=== PATIENT | female | born 1975 | race Caucasian/White ===

== ENCOUNTER 2016-06-15 17:24 | Inpatient (IN) | payer SELFPAY ==
[~2016-06-15] VITALS: Ht 157.5 cm; Wt 77.7 kg
[~2016-06-15 17:24] MED LIST: ULT50 PO
[2016-06-15] MEDS ORDERED: morphine 4 MG/ML VIAL IV STA ×2 (19:32→21:02)
[2016-06-15] MEDS ORDERED: SOD CHLORIDE 0.9% 1,000 ML IV STA (19:32)
[2016-06-15] MEDS ORDERED: ONDANSETRON 4 MG INJ IV STA (19:32)
--- NOTE | 2016-06-15 19:47 | ERD ---
ER Documentation Chief Complaint Date/Time DATE: 06/15/16 TIME: 19:42 Chief Complaint abdominal pain for the past 4 hours no vomiting.vag bleeding abnormal HPI 40-year-old female with a history of appendectomy and ectopic presents the emergency department complaining of constant sharp 10 out of 10 lower abdominal pain, left flank pain, and vaginal bleeding since 4 hours ago. Patient states she was seen by an urgent care earlier today and received Rulo for pain but has experienced no relief. Patient states her last normal menstrual period was on June 01 and lasted 5 days. Patient states she underwent an appendectomy in 2006. She states she has been able to keep down small amounts of food and liquid this morning and reports normal bowel movement this morning. Patient denies any nausea, vomiting, diarrhea, and states she is not experienced this type of pain in the past. Patient has been seen by her primary care physician for her chronic low back pain and takes Aleve as needed. ROS All systems reviewed and are negative except as per history of present illness. Medications Home Meds Active Scripts Cephalexin* (Keflex*) 500 Mg Capsule, 500 MG PO QID for 7 Days, CAP Prov:JACQUELINE CUNHA PA-C 06/15/16 Ibuprofen* (Motrin*) 600 Mg Tab, 600 MG PO Q6, #30 TAB Prov:JACQUELINE CUNHA PA-C 06/15/16 Hydrocodone/Acetaminophen (Rulo 10-325 Tablet) 1 Each Tablet, 1 TAB PO Q6H Y for PAIN, #7 TAB Prov:JACQUELINE CUNHA PA-C 06/15/16 Docusate Sodium* (Colace*) 100 Mg Capsule, 200 MG PO DAILY, #30 CAP Prov:JACQUELINE CUNHA PA-C 06/15/16 Ferrous Sulfate* (Ferrous Sulfate*) 325 Mg Tabec, 325 MG PO BID for 60 Days, TAB Prov:JACQUELINE CUNHA PA-C 06/15/16 Tramadol HCl (Tramadol HCl) 50 Mg Tablet, 50 MG PO Q6 Y for PAIN, #20 TAB Prov:PRIYANKA GILLETTE PA-C 05/20/16 Allergies Allergies: Coded Allergies: No Known Allergy (Unverified , 05/20/16) PMhx/Soc History of Surgery: No Anesthesia Reaction: No Hx Neurological Disorder: No Hx Respiratory Disorders: No Hx Cardiac Disorders: No Hx Psychiatric Problems: No Hx Miscellaneous Medical Probl: No Hx Alcohol Use: No Hx Substance Use: No Hx Tobacco Use: No Physical Exam Vitals Vital Signs Date Time Temp Pulse Resp B/P Pulse Ox O2 Delivery O2 Flow Rate FiO2 06/15/16 17:26 98.3 111 20 140/67 97 Physical Exam Const: Pale, Well-developed, in moderate distress, dehydrated in appearance Head: Atraumatic Eyes: Normal Conjunctiva ENT: Dry mucous membranes, normal External Ears, Nose and Mouth. Neck: Full range of motion..~ No meningismus. Resp: Clear to auscultation bilaterally Cardio: Regular rate and rhythm, no murmurs Abd: Soft, tender along suprapubic region, non distended. Normal bowel sounds. Negative McBurney's point tenderness, negative Kessler sign. Skin: Diffuse Pallor, No petechiae or rashes Back: No midline or flank tenderness Ext: No cyanosis, or edema Neur: Awake and alert Psych: Normal Mood and Affect Result Diagram: 06/15/16195306/15/161953 Results 24 hrs Laboratory Tests Test 06/15/16 19:54 06/15/16 19:56 Alanine Aminotransferase (ALT/SGPT) 26IU/L Albumin 4.0g/dl Albumin/Globulin Ratio 0.93 Alkaline Phosphatase 120IU/L Anion Gap 17 Aspartate Amino Transf (AST/SGOT) 27IU/L Basophils # 0.110^3/ul Basophils % 2.0% Blood Morphology Comment Blood Urea Nitrogen 11mg/dl Calcium Level 8.5mg/dl Carbon Dioxide Level 27mmol/L Chloride Level 103mmol/L Creatinine 0.80mg/dl Direct Bilirubin 0.00mg/dl Eosinophils # 0.110^3/ul Eosinophils % 1.0% Globulin 4.30g/dl Glucose Level 76mg/dl Hematocrit 25.5% Hemoglobin 7.8g/dl Indirect Bilirubin 0.0mg/dl Lipase 224U/L Lymphocytes # 3.210^3/ul Lymphocytes % 44.0% Mean Corpuscular Hemoglobin 19.4pg Mean Corpuscular Hemoglobin Concent 30.4g/dl Mean Corpuscular Volume 63.9fl Mean Platelet Volume 7.9fl Monocytes # 0.410^3/ul Monocytes % 5.0% Neutrophils # 3.510^3/ul Neutrophils % 48.0% Platelet Count 16217^3/UL Platelet Estimate PLT APPEAR ADEQUATE Potassium Level 3.6mmol/L Red Blood Count 3.9910^6/ul Red Cell Distribution Width 20.1% Sodium Level 143mmol/L Total Bilirubin 0.0mg/dl Total Protein 8.3g/dl Troponin I < 0.012ng/ml White Blood Count 7.210^3/ul Urine Bacteria FEW Urine Bilirubin NEGATIVE Urine Clarity SLIGHTLY CLOUDY Urine Color LT. YELLOW Urine Glucose NEGATIVE% Urine Hemoglobin 2+ Urine Ketones NEGATIVE Urine Leukocyte Esterase 2+ Urine Microscopic RBC 10-25/HPF Urine Microscopic WBC 10-25/HPF Urine Nitrite NEGATIVE Urine Specific [place] >=1.030 Urine Squamous Epithelial Cells FEW Urine Total Protein 1+ Urine Urobilinogen 0.2 E.U./dL Urine pH 5.5 Current Medications Medications (Trade) Dose Ordered Sig/Ana Route PRN Reason Start Time Stop Time Status Last Admin Dose Admin Sodium Chloride (NS) 1,000 ml @ 1,000 mls/hr Q1H STAT IV 06/15/16 19:32 06/15/16 20:31 DC 06/15/16 19:50 Morphine Sulfate (morphine) 4 mg ONCE STAT IV 06/15/16 19:32 06/15/16 19:39 DC 06/15/16 19:51 Ondansetron HCl (Zofran Inj) 4 mg ONCE STAT IV 06/15/16 19:32 06/15/16 19:39 DC 06/15/16 19:50 Morphine Sulfate (morphine) 4 mg ONCE STAT IV 06/15/16 21:02 06/15/16 21:03 DC 06/15/16 21:14 Hydromorphone HCl (Dilaudid) 0.5 mg ONCE STAT IV 06/15/16 21:51 06/15/16 21:53 DC 06/15/16 22:00 Hydromorphone HCl (Dilaudid) 0.5 mg ONCE STAT IV 06/15/16 22:38 06/15/16 22:40 DC 06/15/16 22:57 Miscellaneous Medication 40 ml 40 ml ONCE ONCE PO 06/15/16 23:00 06/15/16 23:01 DC 06/15/16 22:57 Sodium Chloride (NS) 1,000 ml @ 1,000 mls/hr Q1H ONCE IV 06/15/16 23:00 06/15/16 23:59 06/15/16 22:57 Procedures/MDM RADIOLOGY: PROCEDURE: CT Abdomen and Pelvis without contrast CLINICAL INDICATION: Pain TECHNIQUE: Transaxial images were obtained through the abdomen and pelvis on a multi-slice scanner without the intravenous contrast administration. No oral contrast had previously been given. Sagittal and coronal re-formations were subsequently reconstructed. One or more of the following dose reduction techniques were used: - Automated exposure control. - Adjustment of the mA and/or kV according to patient size. - Use of iterative reconstruction technique. Radiation dose: CTDIvol = 16.99 mGy; DLP = 143.77 mGy-cm. COMPARISON: The none of the polyps sonogram done earlier on the same date The previous pelvic sonogram was unremarkable. FINDINGS: Lung bases: The visualized lung bases appear unremarkable. Liver: The dome of the liver was not included in the study. The liver is normal in size. A couple punctate calcifications are seen within the liver compatible with granulomata. Gallbladder: Surgical stephanie are seen in the gallbladder fossa. Bile ducts: The common hepatic and common bile duct are moderately dilated at approximately 1.2 cm in cross diameter. No choledocholith is identified. Pancreas: The pancreas appears unremarkable. Spleen: Normal in size with no focal lesion. Adrenals: Normal with no mass identified. Kidneys, ureters and bladder: A 2 mm nonobstructing nephrolith is seen within the midpole of the right kidney. The kidneys otherwise appear unremarkable and there is no hydronephrosis. The ureters are normal in caliber and no ureteroliths are identified. The bladder appears unremarkable. Reproductive organs: The uterus is midline. A surgical clip is seen within the left adnexal region but no adnexal masses identified. Stomach and bowel: The cecum is positioned high within the left upper quadrant of the abdomen. The ascending colon crosses the midline and demonstrates considerable tapered narrowing over a 7-8 cm length. There is no evidence of small bowel obstruction. There is a moderate-sized hiatal hernia. Appendix: There are no findings to suggest appendicitis. An appendicolith is seen within the normal-sized appendix. Peritoneum: No free intraperitoneal fluid or air is identified. Aorta: Normal in caliber with no aneurysmal dilatation. IVC: Unremarkable. Lymph nodes: No pathologically enlarged nodes are identified. Osseous structures: The osseous elements appear intact. IMPRESSION: 1. The cecum and very proximal ascending colon are moderately distended with air and positioned within the left upper quadrant of the abdomen, rather than right lower quadrant. There is narrowing over considerable length of the more proximal right colon which crosses the midline. This is of concern for a cecal volvulus, although there is no small bowel obstruction evident. A normal size vermiform appendix is seen extend off the cecum within the left upper quadrant an appendicolith is seen within the appendix. 2. Moderate-sized hiatal hernia. 3. A couple small punctate granulomata are seen within the liver. 4. Status post cholecystectomy with the common bile duct dilated to 1.2 cm. No choledocholith is evident and the pancreas appears unremarkable. Clinical and laboratory correlation is indicated to exclude distal biliary obstruction. 5. There is a 2 mm nonobstructing nephrolith within the mid pole of the right kidney. There is no evidence of urinary outflow obstruction or ureterolithiasis. 6. A surgical clip is seen in the left adnexal region. Findings of cecal volvulus were telephoned by Nate Ling MD to Jacqueline Cunha Pa-C on 06/15/2016 at 2255 hours. Physician Dax Date Time Electronically viewed and signed by Physician Dax on 06/15/2016 22:56 RH/ CC: JACQUELINE CUNHA PA-C PROCEDURE: US Pelvis. CLINICAL INDICATION: Abdominal Pain TECHNIQUE: Multiple sonographic images of the pelvis were obtained utilizing a transabdominal and endovaginal technique. The images were reviewed on a PACS workstation. COMPARISON: None. FINDINGS: The uterus is visualized and measures 76 x 36 x 31 mm. The endometrial echo complex is normal and measures 7 mm. There is no evidence for free fluid. The right ovary has a normal echotexture and measures 25 x 18 x 22 mm . The left ovary has a normal echotexture and measures 17 x 14 x 10 mm. No ovarian torsion. Right follicular cyst measures 15 mm. No adnexal masses are noted. IMPRESSION: No acute process in the pelvis. RPTAT: UU Physician Jose Date Time Electronically viewed and signed by Reyna Porter Physician on 06/15/2016 21:38 RS/ CC: JACQUELINE CUNHA PA-C This is a 40-year-old female who presents the emergency department for lower abdominal pain, flank pain, and abnormal vaginal bleeding. Patient received 2 L bolus of fluids per Abdominal exam significant for suprapubic tenderness and left flank tenderness. CBC showed Hgb of 7.8. no evidence of systemic infection . CMP showed no evidence of electrolyte abnormalities, severe acidosis, alkalosis , renal failure, or liver disease. Lipase showed no evidence of acute pancreatitis. UA showed evidence of acute infection. Urine test was negative. CT results discussed with Dr. Ansari and decision was made to move patient to main ED in preparation for admission and surgery consult. JACQUELINE CUNHA PA-C Jun 15, 2016 19:47
[2016-06-15 20:14] LABS: ADD UMIC YES; URINE BILIRUBIN (Dip) NEGATIVE (NEGATIVE); URINE BLOOD (Dip) 2+ (NEGATIVE); URINE COLOR LT. YELLOW (YELLOW); URINE GLUCOSE (Dip) NEGATIVE (NEGATIVE); URINE KETONES (Dip) NEGATIVE (NEGATIVE); URINE LEUKOCYTE ESTERASE (Dip) 2+ (NEGATIVE); URINE NITRITE (Dip) NEGATIVE (NEGATIVE); URINE TOTAL PROTEIN (Dip) 1+ (NEGATIVE); URINE UROBILINOGEN (Dip) 0.2 E.U./dL (0.1-1.0)
[2016-06-15 20:20] LABS: HEMATOCRIT 25.5 % (37.0-47.0); HEMOGLOBIN 7.8 g/dl (12.0-16.0); MEAN CORPUSCULAR HEMOGLOBIN 19.4 pg (29.0-33.0); MEAN CORPUSCULAR HGB CONC 30.4 g/dl (32.0-37.0); MEAN CORPUSCULAR VOLUME 63.9 fl (82.0-101.0); MEAN PLATELET VOLUME 7.9 fl (7.4-10.4); PLATELET COUNT 289 10^3/UL (140-440); RED BLOOD COUNT 3.99 10^6/ul (4.20-5.40); RED CELL DISTRIBUTION WIDTH 20.1 % (11.5-14.5); UNCORRECTED WBC 7.2 10^3/ul (4.8-10.8); WHITE BLOOD COUNT 7.2 10^3/ul (4.8-10.8)
[2016-06-15 20:25] LABS: CONDITION 1; LH ANALYZER COMMENTS 1
[2016-06-15 20:26] LABS: CHLORIDE 103 mmol/L (97-110)
[2016-06-15 20:27] LABS: POTASSIUM 3.6 mmol/L (3.5-5.1); SODIUM 143 mmol/L (135-144)
[2016-06-15 20:29] LABS: ALBUMIN/GLOBULIN RATIO 0.93; ANION GAP 17 (8-16); CARBON DIOXIDE 27 mmol/L (21-31); TOTAL PROTEIN 8.3 g/dl (6.1-8.1)
[2016-06-15 20:30] LABS: ALANINE AMINOTRANSFERASE 26 IU/L (13-69); ALKALINE PHOSPHATASE 120 IU/L (42-121); ASPARTATE AMINO TRANSFERASE 27 IU/L (15-46); BLOOD UREA NITROGEN 11 mg/dl (7-20); CALCIUM 8.5 mg/dl (8.4-10.2); GLUCOSE 76 mg/dl (70-220)
[2016-06-15 20:38] LABS: BACTERIA,URINE FEW; SQUAMOUS EPITHELIAL CELL,UR FEW
[2016-06-15 20:42] LABS: TROPONIN-I < 0.012 ng/ml (0.00-0.12)
[2016-06-15 21:20] LABS: BASOPHIL # 0.1 10^3/ul (0.0-0.1); EOSINOPHILS # 0.1 10^3/ul (0.0-0.5); LYMPHOCYTES # 3.2 10^3/ul (0.8-2.9); MONOCYTE # 0.4 10^3/ul (0.3-0.9); NEUTROPHIL # 3.5 10^3/ul (1.6-7.5)
[2016-06-15 21:21] LABS: PLATELET ESTIMATE PLT APPEAR ADEQUATE
[2016-06-15] MEDS ORDERED: IBUP-1542 PO (21:23)
[2016-06-15] MEDS ORDERED: HYDR-902 PO (21:23)
[2016-06-15] MEDS ORDERED: FER325 PO (21:23)
[2016-06-15] MEDS ORDERED: DOCU-144 PO (21:23)
--- NOTE | 2016-06-15 21:38 | RADRPT ---
PROCEDURE: US Pelvis. CLINICAL INDICATION: Abdominal Pain TECHNIQUE: Multiple sonographic images of the pelvis were obtained utilizing a transabdominal and endovaginal technique. The images were reviewed on a PACS workstation. COMPARISON: None. FINDINGS: The uterus is visualized and measures 76 x 36 x 31 mm. The endometrial echo complex is normal and me asures 7 mm. There is no evidence for free fluid. The right ovary has a normal echotexture and measu res 25 x 18 x 22 mm . The left ovary has a normal echotexture and measures 17 x 14 x 10 mm. No ova netta torsion. Right follicular cyst measures 15 mm. No adnexal masses are noted. IMPRESSION: No acute process in the pelvis. RPTAT: UU Physician Jose Date Time Electronically viewed and signed by Physician Jose on 06/15/2016 21:38 RS/
[2016-06-15] MEDS ORDERED: HYDROmorphONE 1 MG/ML SYG IV STA ×2 (21:51→22:38)
[2016-06-15] MEDS ORDERED: CEPH-443 PO (21:51)
--- NOTE | 2016-06-15 22:57 | RADRPT ---
PROCEDURE: CT Abdomen and Pelvis without contrast CLINICAL INDICATION: Pain TECHNIQUE: Transaxial images were obtained through the abdomen and pelvis on a multi-slice scanner without the intravenous contrast administration. No oral contrast had previously been given. Sagit liam and coronal re-formations were subsequently reconstructed. One or more of the following dose reduction techniques were used: - Automated exposure control. - Adjustment of the mA and/or kV according to patient size. - Use of iterative reconstruction technique. Radiation dose: CTDIvol = 16.99 mGy; DLP = 143.77 mGy-cm. COMPARISON: The none of the polyps sonogram done earlier on the same date The previous pelvic sonogram was unremarkable. FINDINGS: Lung bases: The visualized lung bases appear unremarkable. Liver: The dome of the liver was not included in the study. The liver is normal in size. A couple punctate calcifications are seen within the liver compatible with granulomata. Gallbladder: Surgical stephanie are seen in the gallbladder fossa. Bile ducts: The common hepatic and common bile duct are moderately dilated at approximately 1.2 cm i n cross diameter. No choledocholith is identified. Pancreas: The pancreas appears unremarkable. Spleen: Normal in size with no focal lesion. Adrenals: Normal with no mass identified. Kidneys, ureters and bladder: A 2 mm nonobstructing nephrolith is seen within the midpole of the rig ht kidney. The kidneys otherwise appear unremarkable and there is no hydronephrosis. The ureters ar e normal in caliber and no ureteroliths are identified. The bladder appears unremarkable. Reproductive organs: The uterus is midline. A surgical clip is seen within the left adnexal region but no adnexal masses identified. Stomach and bowel: The cecum is positioned high within the left upper quadrant of the abdomen. The ascending colon crosses the midline and demonstrates considerable tapered narrowing over a 7-8 cm le ngth. There is no evidence of small bowel obstruction. There is a moderate-sized hiatal hernia. Appendix: There are no findings to suggest appendicitis. An appendicolith is seen within the normal- sized appendix. Peritoneum: No free intraperitoneal fluid or air is identified. Aorta: Normal in caliber with no aneurysmal dilatation. IVC: Unremarkable. Lymph nodes: No pathologically enlarged nodes are identified. Osseous structures: The osseous elements appear intact. IMPRESSION: 1. The cecum and very proximal ascending colon are moderately distended with air and positioned wit hin the left upper quadrant of the abdomen, rather than right lower quadrant. There is narrowing ov er considerable length of the more proximal right colon which crosses the midline. This is of annabella rn for a cecal volvulus, although there is no small bowel obstruction evident. A normal size vermif orm appendix is seen extend off the cecum within the left upper quadrant an appendicolith is seen wi thin the appendix. 2. Moderate-sized hiatal hernia. 3. A couple small punctate granulomata are seen within the liver. 4. Status post cholecystectomy with the common bile duct dilated to 1.2 cm. No choledocholith is e vident and the pancreas appears unremarkable. Clinical and laboratory correlation is indicated to e xclude distal biliary obstruction. 5. There is a 2 mm nonobstructing nephrolith within the mid pole of the right kidney. There is no evidence of urinary outflow obstruction or ureterolithiasis. 6. A surgical clip is seen in the left adnexal region. Findings of cecal volvulus were telephoned by Nate Ling MD to Jacqueline Cunha Pa-C on 06/15 at 2255 hours. Physician Dax Date Time Electronically viewed and signed by Physician Dax on 06/15/2016 22:56 /
[2016-06-15] MEDS ORDERED: SOD CHLORIDE 0.9% 1,000 ML IV ONE (23:00)
[2016-06-15] MEDS ORDERED: LIDOCAINE/MYLANTA 40 ML BTL PO ONE (23:00)
--- NOTE | 2016-06-15 23:26 | RADRPT ---
PROCEDURE: XR Chest. CLINICAL INDICATION: Chest pain. TECHNIQUE: Single frontal view of the chest was obtained COMPARISON: None FINDINGS: The heart and mediastinum are within normal limits. The lungs are clear. There is no pleural effusion or pneumothorax. IMPRESSION: No acute disease. RPTAT: UU Physician Jose Date Time Electronically viewed and signed by Reyna Porter Physician on 06/15/2016 23:26 RS/
[2016-06-15] MEDS ORDERED: ACETAMINOPHEN 325 MG TAB PO PRN (23:30)
[2016-06-15] MEDS ORDERED: ONDANSETRON 4 MG INJ IV PRN (23:30)
--- NOTE | 2016-06-15 23:44 | QN ---
Documentation Comment I have seen and evaluated the patient along with the PA and/or CURTAIN STRETCHER provider. I agree with the evaluation and plan of care. Please see their documentation for full ER course and evaluation. In short: The patient is well-known to this provider for history of chronic pain and chronic abdominal pain as well as drug-seeking behavior. However, the patient appears to be registered under different name or different date of . The patient refuses this. However I do know this patient very well. Unfortunately however the patient has a CT that is concerning for possible volvulus. The patient is still complaining of abdominal pain but exam shows only mild tenderness diffusely. She does have bowel sounds in all quadrants and passed stool earlier today, no significant vomiting. The patient appears to be in her usual state of health. However, her CAT scan is concerning and the patient will benefit from further imaging, general surgery consultation. I spoke to the the patient using an community marketing coordinator. The general surgeon satellite installation technician would like the patient to have an upper GI series with small bowel follow-through performed this evening and he will evaluate the patient in the morning. No antibiotics. Continue with fluid resuscitation and pain control medication. Accepting care team and consultations: I discussed the current laboratory data, diagnostic imaging and emergency care provided. Admitting team: Dr. Gardner Admitting team indication: Insurance directed Consulting services: Dr. Mojica, general surgery The patient was admitted to the medical surgical floor SCOT FREITAS MD Jun 15, 2016 23:44
[2016-06-16 00:08] VITALS: RESP 18
[2016-06-16] MEDS ORDERED: ONDANSETRON 4 MG INJ IV PRN (01:30)
[2016-06-16] MEDS ORDERED: GABA300C16 PO (01:30)
[2016-06-16] MEDS: DEXTROSE 5%-0.45% NACL 1,000 ML IV SCH ×2 (01:36→11:37)
[2016-06-16] MEDS: HYDROmorphONE 1 MG/ML SYG IV PRN ×5 (01:50→19:28)
[2016-06-16 02:34] VITALS: Ht 157.5 cm; Wt 77.7 kg
[2016-06-16 05:08] LABS: BASOPHILS % 0.3 % (0.0-2.0); EOSINOPHILS # 0.1 10^3/ul (0.0-0.5); EOSINOPHILS % 1.3 % (0.0-7.0); HEMATOCRIT 21.9 % (37.0-47.0); LYMPHOCYTES # 2.5 10^3/ul (0.8-2.9); LYMPHOCYTES % 42.2 % (15.0-51.0); MEAN CORPUSCULAR HEMOGLOBIN 19.2 pg (29.0-33.0); MEAN CORPUSCULAR HGB CONC 29.3 g/dl (32.0-37.0); MEAN CORPUSCULAR VOLUME 65.5 fl (82.0-101.0); MEAN PLATELET VOLUME 8.4 fl (7.4-10.4); MONOCYTE # 0.4 10^3/ul (0.3-0.9); MONOCYTES % 6.9 % (0.0-11.0); NEUTROPHIL # 2.9 10^3/ul (1.6-7.5); NEUTROPHILS % 49.3 % (39.0-77.0); PLATELET COUNT 240 10^3/UL (140-440); RED BLOOD COUNT 3.34 10^6/ul (4.20-5.40); RED CELL DISTRIBUTION WIDTH 19.1 % (11.5-14.5); UNCORRECTED WBC 5.9 10^3/ul (4.8-10.8); WHITE BLOOD COUNT 5.9 10^3/ul (4.8-10.8)
[2016-06-16 05:09] LABS: ALBUMIN 2.9 g/dl (3.3-4.9)
[2016-06-16 05:10] LABS: POTASSIUM 3.6 mmol/L (3.5-5.1)
[2016-06-16 05:12] LABS: ALBUMIN/GLOBULIN RATIO 0.93; BILIRUBIN,INDIRECT 0.1 mg/dl (0-1.1); BILIRUBIN,TOTAL 0.1 mg/dl (0.2-1.3); CREATININE 0.65 mg/dl (0.44-1.00)
[2016-06-16 05:13] LABS: CALCIUM 7.4 mg/dl (8.4-10.2); MAGNESIUM 1.8 mg/dl (1.7-2.5); PHOSPHORUS 3.4 mg/dl (2.5-4.9)
[2016-06-16] MEDS: morphine 4 MG/ML VIAL IV PRN ×4 (05:28→17:35)
[2016-06-16 05:32] LABS: CONDITION 1; HEMOGLOBIN 6.4 g/dl (12.0-16.0); LH ANALYZER COMMENTS 1
[2016-06-16] MEDS ORDERED: PANTOPRAZOLE 40 MG INJ IV SCH (06:00)
--- NOTE | 2016-06-16 06:52 | HP ---
DATE OF ADMISSION: 06/15/2016 HISTORY OF PRESENT ILLNESS: The patient is a 40-year-old female with a history of anemia, chronic p ain syndrome, and cholecystectomy who presented to the emergency department with abdominal pain. Sh e also reported associated nausea and nonbilious, nonbloody emesis. CT abdomen and pelvis was done which showed findings concerning for cecal volvulus. Also noted was she is status post cholecystect debora with common bile duct dilated to 1.2 cm, but no evidence of choledocholith. The on-call surgeon , Dr. Mojica, has been consulted by the ER physician. It is worth mentioning here that there is a note by Dr. Ansari, the ER physician, who stated that this patient is very well known to him and has a history of chronic pain, chronic abdominal pain as well as drug seeking behavior; however, the patient appears to be registered under a different name or a different date of . When we talked to her, she denied this. In any case, she is admitted. S he had a CT abdomen and pelvis which showed possible cecal volvulus and was admitted for surgical ev aluation. She did present with a hemoglobin of 7.8 with MCV of 64. REVIEW OF SYSTEMS: Negative except as mentioned in HPI. PAST MEDICAL HISTORY: As per HPI. PAST SURGICAL HISTORY: As per HPI. SOCIAL HISTORY: Denied a history of tobacco, alcohol, or illicit drug use. ALLERGIES: NO KNOWN DRUG ALLERGIES. HOME MEDICATIONS: 1. Gabapentin. 2. Tramadol. 3. Colace. PHYSICAL EXAMINATION: VITAL SIGNS: Stable. GENERAL: The patient is in mild discomfort due to abdominal pain. She is answering questions appro priately, able to speak in full sentences. HEENT: No obvious head deformity. Pupils are reactive to light. CARDIOVASCULAR: Regular rate and rhythm. No extra sounds. LUNGS: Clear. ABDOMEN: Soft. There is some tenderness in the lower abdominal region in the suprapubic area with no guarding, no rigidity, no rebound tenderness. There are positive bowel sounds. EXTREMITIES: No edema. NEUROLOGIC: No focal deficits. LABORATORY DATA: Hemoglobin 7.8 with MCV of 64 and RDW 20. IMAGING: CT abdomen and pelvis with results as mentioned in the HPI. Pelvic ultrasound shows no ac tununak process. Chest x-ray also shows no acute disease. IMPRESSION: 1. 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 2. Abdominal pain, most likely secondary to above. 3. Microcytic anemia. We will evaluate for iron deficiency and GI bleed. PLAN: We will keep n.p.o. She will be placed on IV fluid. We will provide pain medication and ant iemetics as needed. We will monitor her hemoglobin closely and transfuse as needed. We will check iron profile, ferritin, and we will not order FOBT. Further workup and management per clinical course. Dictated By: DARWIN EDGE/LARRY Conf#: [id number] DID#: [id number]
--- NOTE | 2016-06-16 10:49 | PN ---
Date/Time of Note Date/Time of Note DATE: 06/16/16 TIME: 10:31 Assessment/Plan VTE Prophylaxis VTE Prophylaxis Intervention: contraindicated (potential surgery) Lines/Catheters IV Catheter Type (from Nrsg): Peripheral IV Assessment/Plan Chief Complaint/Hosp Course Hospitalist coverage Subjective: 06/16; 40yr F w abd pain, n/v. No fevers chills, denies . 9:55, time for her narcotics. Hungry. Objective: Vital signs stable; poor R-wave progression through ant leads. Physical examination: No pallor or adenopathy or icterus Reg, no m/ r/g CTAB Bs +, mild to mod diffuse tenderness. Possible voluntary guarding no rigidity or rebound No peripheral edema Assessment and plan 1. Abd pain, possible volvulus. Stable consult surgery. Npo/IVf/atb's 2. History of cholecystectomy 3. Moderate anemia, ukn etio. 4. Chronic pain disorder 5. Asthma 6. Possible nonadherence Problems: Exam/Review of Systems Vital Signs Vitals Vital Signs Date Time Temp Pulse Resp B/P Pulse Ox O2 Delivery O2 Flow Rate FiO2 06/16/16 00:08 90 18 108/51 99 Room Air 06/15/16 17:26 98.3 Intake and Output 06/15/16 06/15/16 06/16/16 14:59 22:59 06:59 Intake Total 1000 ml 350 ml Balance 1000 ml 350 ml Results Result Diagram: 06/16/16 0435 06/16/16 0435 Results 24 hrs Laboratory Tests Test 06/15/16 19:54 06/15/16 19:56 06/16/16 04:35 Alanine Aminotransferase (ALT/SGPT) 26 28 Albumin 4.0 2.9 #L Albumin/Globulin Ratio 0.93 0.93 Alkaline Phosphatase 120 99 Anion Gap 17 H 12 Aspartate Amino Transf (AST/SGOT) 27 24 Basophils # 0.1 0.0 Basophils % 2.0 0.3 Blood Morphology Comment Blood Urea Nitrogen 11 10 Calcium Level 8.5 7.4 L Carbon Dioxide Level 27 26 Chloride Level 103 108 Creatinine 0.80 0.65 Direct Bilirubin 0.00 0.00 Eosinophils # 0.1 0.1 Eosinophils % 1.0 1.3 Globulin 4.30 H 3.10 Glucose Level 76 83 Hematocrit 25.5 L 21.9 L Hemoglobin 7.8 L 6.4 *L Indirect Bilirubin 0.0 0.1 Lipase 224 Lymphocytes # 3.2 H 2.5 Lymphocytes % 44.0 42.2 Mean Corpuscular Hemoglobin 19.4 L 19.2 L Mean Corpuscular Hemoglobin Concent 30.4 L 29.3 L Mean Corpuscular Volume 63.9 L 65.5 L Mean Platelet Volume 7.9 8.4 Monocytes # 0.4 0.4 Monocytes % 5.0 6.9 Neutrophils # 3.5 2.9 Neutrophils % 48.0 49.3 Platelet Count 289 240 Platelet Estimate PLT APPEAR ADEQUATE Potassium Level 3.6 3.6 Red Blood Count 3.99 L 3.34 L Red Cell Distribution Width 20.1 H 19.1 H Sodium Level 143 142 Total Bilirubin 0.0 L 0.1 L Total Protein 8.3 H 6.0 #L Troponin I < 0.012 White Blood Count 7.2 5.9 Urine Bacteria FEW Urine Bilirubin NEGATIVE Urine Clarity SLIGHTLY CLOUDY Urine Color LT. YELLOW Urine Glucose NEGATIVE Urine Hemoglobin 2+ H Urine Ketones NEGATIVE Urine Leukocyte Esterase 2+ H Urine Microscopic RBC 10-25 Urine Microscopic WBC 10-25 Urine Nitrite NEGATIVE Urine Specific [place] >=1.030 H Urine Squamous Epithelial Cells FEW Urine Total Protein 1+ H Urine Urobilinogen 0.2 E.U./dL Urine pH 5.5 Magnesium Level 1.8 Nucleated Red Blood Cells # 0.0 Nucleated Red Blood Cells % 0.0 Phosphorus Level 3.4 Medications Medications Current Medications Dextrose/Sodium Chloride (D5-1/2ns) 1,000 ml @ 100 mls/hr Q10H IV Last administered on 06/16/16 01:36; Admin Dose 100 MLS/HR; Start 06/16/16 at 01:30 Hydromorphone HCl (Dilaudid) 1 mg Q3H PRN IV PAIN Last administered on 06:52; Admin Dose 1 MG; Start 06/16/16 at 01:30 Morphine Sulfate (morphine) 4 mg Q4H PRN IV PAIN Last administered on 09:15; Admin Dose 4 MG; Start 06/16/16 at 01:30 Ondansetron HCl (Zofran Inj) 4 mg Q6H PRN IV NAUSEA AND/OR VOMITING; Start at 01:30 Pantoprazole (Protonix Iv) 40 mg DAILY@06 IV Last administered on 06/16/16t 05: 27; Admin Dose 40 MG; Start 06/16/16 at 06:00 JIN GEORGES MD Jun 16, 2016 10:49
[2016-06-16] MEDS ORDERED: ALBUTEROL HFA 8 GM INHALER INH PRN (11:00)
[2016-06-16 11:15] VITALS: BP 99/57; PULSE 71
[2016-06-16] MEDS ORDERED: PIPER-TAZO 2.25 GM (PMX) 50 ML IVPB SCH (12:40)
[2016-06-16] MEDS ORDERED: DIATR MEGLU/DIATRIZOATE SODIUM 120 ML BTL ONE (13:15)
[2016-06-16] MEDS ORDERED: KETOROLAC 30 MG INJ IV SCH (14:00)
--- NOTE | 2016-06-16 15:40 | CONS ---
[facility] INITIAL INPATIENT CONSULTATION NOTE PLACE OF SERVICE: [facility], second floor, [facility]. DATE OF CONSULTATION: 06/16/2016 ASSESSMENT AND PLAN: A very pleasant 40-year-old lady with comorbid issues of chronic pain syndrome as well as anemia and prior cholecystectomy and a BMI of 31.3 admitted with abdominal pain of unclear etiology. I have personally reviewed the CT images and given the clinical picture, I do not believe that we are dealing with an acute volvulus of the cecum. She has no major evidence of bowel obstruction on the CT scan and abdominal exam is fairly benign. There is a question of whether there has been more medical history than what we know and I would strongly recommend that we obtain the CT scan from 2006 to review and compare to yesterday's CT scan. I do not see any indication for acute surgical intervention, but certainly we need further workup to tease out the clinical picture better. At a minimum, an upper GI with small bowel follow through would be necessary. I also recommend a gastroenterology consultation and possible endoscopy if needed. I explained all this to the patient in detail and answered all her questions to the best of my ability. The patient appeared to understand and agreed with the plans. With above assessment, I recommend the followin. Continue current care. 2. Upper GI with small bowel follow through. 3. Consider gastroenterology consultation. 4. Keep inhouse. 5. Hydration. 6. Check labs. 7. Investigate anemia. 8. Increase activity. 9. Increase incentive spirometry. 10. Please obtain outside records including images from prior CT scan. 11. If the patient is found to have a duplicate name and we have more history this would be extremely important for us to review past history and review images. Thank you again for allowing us to participate in the care of this very pleasant lady and I am certain her wonderful family. If there are any questions , please feel free to call me at [phone]. TOTAL VISIT TIME: 45 minutes of which more than half was spent in [id number] discussion with the patient as well as coordination of care between multiple physicians and providers. DATE OF ADMISSION: 06/15/2016 HISTORY OF PRESENT ILLNESS: The patient is a very pleasant 40-year-old young lady with comorbid issues of anemia and chronic pain syndrome who was admitted through the emergency department at [facility] on 06/15/2016 complaining of abdominal pain associated with nausea and nonbilious and of nonbloody emesis. The patient's workup included a CT scan of the abdomen and pelvis that had findings concerning for cecal volvulus. I was contacted to render a surgical opinion and I had a chance to review all her information the night before I visited with the patient and since we had no evidence of major emergency type issues from a surgical standpoint, I elected to meet with the patient today. She had remained stable and her abdominal pain had significantly subsided with pain medications. She reported having had a cholecystectomy in the past and prior CT scan in 2006 available at [facility] which we currently do not have access to. There was also a mention in the emergency department that the patient was recognized by our emergency room physician but under a different name and there was question of why the patient might give a different name and a different date of and this is currently being investigated. The patient herself reported no major other complaints. Her only other issue was significant headache and she was wondering when she could eat. PAST MEDICAL HISTORY: 1. Anemia. 2. Chronic pain syndrome. 3. Prior cholecystitis status post cholecystectomy. 4. BMI 31.3. PAST SURGICAL HISTORY: Cholecystectomy in the past. ALLERGIES: NO KNOWN DRUG ALLERGIES. HOME MEDICATIONS: 1. Gabapentin. 2. Tramadol. 3. Colace. SOCIAL HISTORY: The patient does not report any significant tobacco or intravenous drug use or alcohol abuse. FAMILY HISTORY: No major reported surgical, medical or oncologic problems in the family. REVIEW OF SYSTEMS: Other than the above-mentioned, there are no other pertinent positives or pertinent negatives in a complete 14-point review of systems. PHYSICAL EXAMINATION: GENERAL: The patient appears to be a very pleasant lady of descent, appearing stated age, lying in bed comfortably and in no acute distress. BMI is 31.3. VITAL SIGNS: Temperature is 98.3, blood pressure 99/57, pulse 71, respiratory rate 18, pulse oximetry 99% on room air. HEENT: Normocephalic and atraumatic. Extraocular muscles and hearing are grossly intact bilaterally and symmetrically. Sclerae are nonicteric. Oral cavity is clear; oral mucosa appeared to be pink and moist. Dentition: fair. NECK: Supple. There is no lymphadenopathy or JVD. There is no submental, submandibular or supraclavicular lymphadenopathy. CHEST: Rises symmetrically with each breath; patient is breathing comfortably. There are no audible wheezes, rales or rhonchi on the gross exam. HEART: Pulse is regular and palpable on the *right wrist. Capillary refill was normal. Carotid pulses are palpable bilaterally and symmetrically in the neck. EXTREMITIES: Lower extremities contain no pitting edema around the ankles bilaterally and symmetrically. ABDOMEN: Her abdomen is soft, nondistended, and for the most part nontender. There is minor discomfort on palpation in a diffuse fashion. There is no evidence of organomegaly, caput medusae, engorged subcutaneous veins, or ascites. There are no peritoneal signs or guarding.SKIN: Appears to be pink and feels warm to touch. NEUROLOGIC: Awake, alert, and follows commands appropriately. LABORATORY DATA: White blood cell count 5.9, hemoglobin 6.4 down from 7.8, platelet count 240. Electrolytes were normal. CO2 26, creatinine 0.65, albumin 2.9 after hydration. Total bilirubin 0.1, AST 24, ALT 28, alkaline phosphatase 99. Urinalysis normal. IMAGING: Patient had a CT scan of the abdomen and pelvis that demonstrated moderately distended cecum and very proximal ascending colon positioned within the left upper quadrant of the abdomen rather than right lower quadrant. There was narrowing over considerable length of the more proximal right colon which crossed the midline. This was thought to be concern for cecal volvulus, although, there was no evidence of small-bowel obstruction. Appendix was thought to be normal. There was an appendicolith seen within the appendix. Moderate sized hiatal hernia was also noted. Evidence of prior cholecystectomy was noted and the common bile duct was read as 1.2 cm. There was a 2 mm nonobstructing nephrolithiasis within the mid pole of the right kidney, but no evidence of urinary outflow obstruction or ureterolithiasis. There was also a surgical clip seen in the left adnexal region. Dictated By: SELVIN SAMAYOA/LARRY Conf#: [id number] DID#: [id number] MTDD
[2016-06-16 15:47] VITALS: BP 121/78; PULSE 95
--- NOTE | 2016-06-16 16:13 | RADRPT ---
Echocardiogram Report Patient Name: MARIA GUADALUPE JEAN BAPTISTE Gender: Female Date: 1975 Study Date: 16-Jun-2016 Fire Sprinkler Fitter: Brenda Burks [facility] Location: 2245 Ref. Physician: JIN GEORGES Quality: Good Procedures: Transthoracic echocardiogram with complete 2D, M-Mode, and doppler examination. Indications: Abnormal EKG. 2D/M Mode Doppler Measurement Value Normal Ranges Measurement Value Normal Ranges LVIDd 2D 5.0 3.5 - 5.6 cm AV Peak Sarthak 1.2 m/sec LVIDs 2D 2.5 2.1 - 4.1 cm AV Peak PG 5.7 mmHg LVPWd 2D 0.9 0.6 - 1.1 cm LVOT Peak Sarthak 1.0 m/sec IVSd 2D 0.8 0.6 - 1.1 cm LVOT Peak PG 4.0 mmHg AoR Diam 2D 2.7 2.0 - 3.7 cm MV E Peak Sarthak 0.7 m/sec EDV 2D 116.0 cm3 MV A Peak Sarthak 0.7 m/sec ESV 2D 15.2 cm3 MV E/A 1.1 LA Dimen 2D 2.8 2.3 - 4.0 cm MV Decel Time 155 msec MV Decel [place] 5 MV E/A 1.1 TR Peak Sarthak 2.3 m/sec TR Peak PG 21.7 mmHg RVSP 30.0 mmHg Findings Left Ventricle: Normal left ventricular systolic function. Normal left ventricular cavity size. Normal left ventricular wall thickness. Ejection fraction is visually estimated at 60 %. Tissue Doppler/Mitral Doppler indices are within normal limits. Right Ventricle: Normal right ventricular size. Normal right ventricular systolic function. Left Atrium: The left atrium is normal in size. Right Atrium: The right atrium is normal in size. Mitral Valve: Normal appearance and function of the mitral valve with trace physiologic regurgitation. Aortic Valve: Normal appearance of the aortic valve. No significant aortic stenosis or insufficiency. Tricuspid Valve: Normal appearance of the tricuspid valve. Estimated peak PA systolic pressure 30 mmHg. There is trace tricuspid regurgitation. Pericardium: Normal pericardium with no significant pericardial effusion. Aorta: Normal aortic root. IVC: Normal size and normal respiratory collapse consistent with normal right atrial pressure. Conclusions Normal left ventricular systolic function. Normal left ventricular cavity size. Normal left ventricular wall thickness. Ejection fraction is visually estimated at 60 %. Tissue Doppler/Mitral Doppler indices are within normal limits. Normal right ventricular size. Normal right ventricular systolic function. The left atrium is normal in size. The right atrium is normal in size. No significant valvular stenosis or regurgitation seen. Normal pericardium with no significant pericardial effusion. Electronically Signed By: Madhu Schaefer 16-Jun-2016 16:13:17 -0800 Patient Name: MARIA GUADALUPE JEAN BAPTISTE Study Date: 16-Jun-[id number]
[2016-06-16 18:22] LABS: ADD UMIC YES; URINE BILIRUBIN (Dip) NEGATIVE (NEGATIVE); URINE BLOOD (Dip) 2+ (NEGATIVE); URINE GLUCOSE (Dip) NEGATIVE (NEGATIVE); URINE KETONES (Dip) NEGATIVE (NEGATIVE); URINE LEUKOCYTE ESTERASE (Dip) 2+ (NEGATIVE); URINE NITRITE (Dip) NEGATIVE (NEGATIVE); URINE TOTAL PROTEIN (Dip) TRACE (NEGATIVE); URINE UROBILINOGEN (Dip) 0.2 E.U./dL (0.1-1.0)
[2016-06-16 18:33] LABS: URINE COLOR YELLOW (YELLOW)
[2016-06-16 18:38] LABS: SQUAMOUS EPITHELIAL CELL,UR MANY
[2016-06-16 18:39] LABS: BACTERIA,URINE MANY
[2016-06-16 18:42] LABS: BARBITURATES Negative (NEGATIVE); BENZODIAZEPINES Positive (NEGATIVE); CANNABINOIDS Negative (NEGATIVE); OPIATES Positive (NEGATIVE)
[2016-06-16 18:50] LABS: COCAINE Negative (NEGATIVE)
--- NOTE | 2016-06-16 22:55 | RADRPT ---
PROCEDURE: Upper GI series. CLINICAL INDICATION: Abdomen pain. TECHNIQUE: Gastrografin was administered orally and several spot and overhead radiographs were obt ained. COMPARISON: No prior study is available for comparison. FINDINGS: Surgical clips are present in the right upper quadrant of the abdomen. Esophageal motility is normal. There is no aspiration. There is no esophageal mass, ulcer, or stricture. There is no gastroesophageal reflux. The stomach and duodenum are normal with no ulceration, mass, or mucosal abnormality. IMPRESSION: 1. Prior right upper quadrant abdomen surgery. 2. Otherwise normal upper GI series. RPTAT: QQ .Stevan Owens MD, MD Date Time Electronically viewed and signed by .Stevan Owens MD, MD on 06/16/2016 22:54 .R/
--- NOTE | 2016-06-16 22:56 | RADRPT ---
PROCEDURE: Small bowel follow-through. CLINICAL INDICATION: Abdomen pain. TECHNIQUE: Water-soluble contrast was administered orally and several spot and overhead radiograph s of the abdomen were obtained. COMPARISON: None. FINDINGS: Surgical clips are present in the right upper quadrant on the preliminary radiograph. The prelimina ry radiograph is otherwise unremarkable. There is no small bowel displacement or mass. The small bowel folds are normal. There is no evidence of obstruction. Transit time is normal with contrast in the colon at 4 hours. . IMPRESSION: 1. Normal small bowel follow-through. No evidence of obstruction. RPTAT: QQ .Stevan Owens MD, MD Date Time Electronically viewed and signed by .Stevan Owens MD, MD on 06/16/2016 22:56 .R/
[2016-06-17] MEDS ORDERED: FAMOTIDINE 20 MG INJ IV SCH (09:00)
--- NOTE | 2016-06-18 07:02 | DS ---
DATE OF ADMISSION: 06/15/2016 DATE OF DISCHARGE: 06/16/2016 DIAGNOSIS ON ADMISSION: Abdominal pain. DIAGNOSES ON DISCHARGE 1. Abdominal pain, possible volvulus. 2. Likely chronic pain disorder. 3. Likely non-adherence 4. Anemia. 5. Asthma. HOSPITAL COURSE: This is an unfortunate, 40-year-old female admitted with abdominal pain. She left AMA yesterday evening. The patient probably has a history of chronic pain disorder. She has evidence of pain-seeking behav ior. Additionally, the ER physician noted that patient probably has been seen before under a differ ent name, date of , etc. The patient was seen by general surgery in the hospital. We did a small bowel series follow-through that was normal, and it did not show any obstruction, and it was essentially normal. I have a feel ing the patient was constipated. She did not want us to use Toradol or Motrin and wanted her narcot ics. No acute abdomen. The patient left AMA. Initially, had anemia, hemoglobin anywhere from 6.4 to 7.8. She was transfused prior to her AMA, bu t unfortunately, I do not have a post-transfusion hemoglobin, as the patient left AMA. LABORATORIES: Stool occult negative for blood. Toxicology positive for benzodiazepines and opiates . The opioids additionally were received here in the hospital. CMP essentially unremarkable. Rajwinder l signs were stable. Chest x-ray negative. Pelvic x-ray negative. Not sure about her periods. Th e patient did not stay for her test. Dictated By: JIN MONROE/LARRY Conf#: [id number] DID#: [id number]
== END 2016-06-16 22:57 | disposition left against medical advice (07) | DRG 390 ==
LOC: FTE 17:24 → PP2 23:19
PROVIDERS: ADMIT Internal Medicine; ATTEND Internal Medicine
PROC: 30233N1 Transfusion of Nonautologous Red Blood Cells into Peripheral Vein, Percutaneous Approach (ICD-10-PCS; principal; 2016-06-16)
DX: K56.2 Volvulus (principal); D64.9 Anemia, unspecified; G89.29 Other chronic pain; J45.909 Unspecified asthma, uncomplicated
CPT/HCPCS: 36415; 71010; 74176; 74240; 74250; 76830; 76856; 80053; 80307; 81001; 81003; 82270; 83690; 83735; 84100; 84484; 84703; 85025; 86850; 86870; 86900; 86901; 86902; 86920; 93005; 93306; 96361; 96374; 96375; 96376; C9113; J1170; J1885; J2270; J2405; J2543; J7030; J7042

== ENCOUNTER 2016-06-17 21:37 | Observation (INO) | payer SELFPAY ==
[~2016-06-17] VITALS: Ht 157.5 cm; Wt 76.5 kg
[~2016-06-17 21:37] MED LIST changes: +CEPH-443 PO; +DOCU-144 PO; +FER325 PO; +GABA300C16 PO; +HYDR-902 PO; +IBUP-1542 PO
--- NOTE | 2016-06-17 22:02 | ERA ---
ER Documentation Chief Complaint Date/Time DATE: 06/17/16 TIME: 22:02 Chief Complaint diffuse abd pain x 4 days, dcd yesterday after admission- volvulus HPI 40-year-old female with a history of anemia and chronic pain syndrome presenting to the emergency department with abdominal pain for 4 days associated with nausea and decreased p.o. intake. She was here yesterday for the same complaint. CT abdomen and pelvis was done which showed findings concerning for cecal volvulus. Per the patient she was also diagnosed with anemia requiring transfusion. However because the patient had no one to watch her children at home, she signed out AMA from the hospital. Today she is returning for persistent symptoms. She denies any vomiting, however she has decreased p.o. intake. She complains of cramping diffuse abdominal pain that is constant, nonradiating. She has had associated diarrhea. No fevers, chills , dysuria, hematuria, hematochezia or melena ROS All systems reviewed and are negative except as per history of present illness. Medications Home Meds Active Scripts Docusate Sodium* (Colace*) 100 Mg Capsule, 200 MG PO DAILY, #30 CAP Prov:SRINATH ROSALES PA-C 06/15/16 Tramadol HCl (Tramadol HCl) 50 Mg Tablet, 50 MG PO Q6 Y for PAIN, #20 TAB Prov:PRIYANKA GILLETTE PA-C 05/20/16 Reported Medications Gabapentin* (Gabapentin*) 300 Mg Capsule, 600 MG PO TID, #180 CAP 06/16/16 Discontinued Scripts Cephalexin* (Keflex*) 500 Mg Capsule, 500 MG PO QID for 7 Days, CAP Prov:SRINATH ROSALES PA-C 06/15/16 Ibuprofen* (Motrin*) 600 Mg Tab, 600 MG PO Q6, #30 TAB Prov:SRINATH ROSALES PA-C 06/15/16 Hydrocodone/Acetaminophen ([place] 10-325 Tablet) 1 Each Tablet, 1 TAB PO Q6H Y for PAIN, #7 TAB Prov:SRINATH ROSALES PA-C 06/15/16 Ferrous Sulfate* (Ferrous Sulfate*) 325 Mg Tabec, 325 MG PO BID for 60 Days, TAB Prov:SRINATH ROSALES PA-C 06/15/16 Allergies Allergies: Coded Allergies: No Known Allergy (Unverified , 05/20/16) PMhx/Soc History of Surgery: Yes (Appendectomy, cholecystectomy) Anesthesia Reaction: No Hx Neurological Disorder: No Hx Respiratory Disorders: No Hx Cardiac Disorders: No Hx Psychiatric Problems: No Hx Miscellaneous Medical Probl: Yes (Chronic pain) Hx Alcohol Use: No Hx Substance Use: No Hx Tobacco Use: No FmHx Family History: No diabetes Physical Exam Vitals Vital Signs Date Time Temp Pulse Resp B/P Pulse Ox O2 Delivery O2 Flow Rate FiO2 06/17/16 21:42 97.7 103 20 128/90 99 Physical Exam Const: Well-nourished, no distress, nontoxic Head: Atraumatic Eyes: Normal Conjunctiva ENT: Normal External Ears, Nose and Mouth. Neck: Full range of motion. No meningismus. Resp: Clear to auscultation bilaterally Cardio: Regular rate and rhythm, no murmurs Abd: Soft, diffuse mild tenderness, moderately distended, no rebound or guarding. Normal bowel sounds Skin: No petechiae or rashes, pale Back: No midline or flank tenderness Ext: No cyanosis, or edema Neur: Awake and alert Psych: Normal Mood and Affect Result Diagram: 06/17/16222406/17/162224 Results 24 hrs Current Medications Medications (Trade) Dose Ordered Sig/Ana Route PRN Reason Start Time Stop Time Status Last Admin Dose Admin Sodium Chloride (NS) 1,000 ml @ 1,000 mls/hr Q1H STAT IV 06/17/16 22:05 06/17/16 23:04 DC 06/17/16 22:44 Procedures/MDM Patient is presenting with persistent abdominal pain. Her vitals are stable. She had questionable cecal volvulus on her imaging done here during her prior admission. As the patient left AGAINST MEDICAL ADVICE yesterday, I contacted the inpatient team that was taking care of her and they agreed to readmission. She was being followed by surgery here, who may need to consult on the patient again. Currently there is no evidence of acute surgical abdomen on my exam. I will admit for further observation and management. Accepting Care Team: Current data and ongoing care discussed. Time: Time of admission Primary Provider: Kendra Consulting: None Outstanding Data: none Departure Diagnosis: Primary Impression: Abdominal pain Qualified Code: R10.84 - Generalized abdominal pain Additional Impressions: Anemia Qualified Code: D64.89 - Anemia due to other cause, not classified Hypokalemia Condition: Fair SALUD WREN MD Jun 17, 2016 22:02
[2016-06-17] MEDS ORDERED: SOD CHLORIDE 0.9% 1,000 ML IV STA (22:05)
[2016-06-17] MEDS ORDERED: HYDROmorphONE 1 MG/ML SYG IV STA (22:23)
[2016-06-17] MEDS ORDERED: ACETAMINOPHEN 325 MG TAB PO PRN (22:30)
[2016-06-17] MEDS ORDERED: ONDANSETRON 4 MG INJ IV PRN (22:30)
[2016-06-17 22:39] LABS: BASOPHILS % 0.3 % (0.0-2.0); EOSINOPHILS # 0.3 10^3/ul (0.0-0.5); HEMATOCRIT 28.7 % (37.0-47.0); HEMOGLOBIN 8.7 g/dl (12.0-16.0); LYMPHOCYTES # 2.1 10^3/ul (0.8-2.9); LYMPHOCYTES % 37.2 % (15.0-51.0); MEAN CORPUSCULAR HEMOGLOBIN 20.5 pg (29.0-33.0); MEAN CORPUSCULAR HGB CONC 30.3 g/dl (32.0-37.0); MEAN CORPUSCULAR VOLUME 67.6 fl (82.0-101.0); MEAN PLATELET VOLUME 8.1 fl (7.4-10.4); MONOCYTE # 0.6 10^3/ul (0.3-0.9); MONOCYTES % 10.6 % (0.0-11.0); NEUTROPHIL # 2.7 10^3/ul (1.6-7.5); NEUTROPHILS % 46.9 % (39.0-77.0); PLATELET COUNT 257 10^3/UL (140-440); RED BLOOD COUNT 4.24 10^6/ul (4.20-5.40); RED CELL DISTRIBUTION WIDTH 21.4 % (11.5-14.5); UNCORRECTED WBC 5.8 10^3/ul (4.8-10.8); WHITE BLOOD COUNT 5.8 10^3/ul (4.8-10.8)
[2016-06-17 22:43] LABS: CONDITION 1; POTASSIUM 3.1 mmol/L (3.5-5.1)
[2016-06-17 22:44] LABS: LH ANALYZER COMMENTS 1
[2016-06-17 22:45] LABS: CREATININE 0.62 mg/dl (0.44-1.00)
[2016-06-17 22:46] LABS: CALCIUM 8.5 mg/dl (8.4-10.2)
[2016-06-17 23:22] VITALS: BP 91/50; RESP 20
[2016-06-17 23:55] VITALS: Ht 157.5 cm; Wt 76.5 kg
[2016-06-17 23:58] VITALS: BP 102/55; PULSE 82; RESP 18
[2016-06-18] MEDS: DEXTROSE 5%-0.45% NACL 1,000 ML IV SCH ×3 (01:29→21:30)
[2016-06-18] MEDS: morphine 4 MG/ML VIAL IV PRN ×5 (01:30→18:23)
[2016-06-18] MEDS ORDERED: ONDANSETRON 4 MG INJ IV PRN (01:30)
[2016-06-18] MEDS: KETOROLAC 15 MG INJ IV PRN ×2 (03:40→18:24)
[2016-06-18 05:46] LABS: BASOPHILS % 0.5 % (0.0-2.0); EOSINOPHILS # 0.2 10^3/ul (0.0-0.5); EOSINOPHILS % 4.4 % (0.0-7.0); HEMATOCRIT 27.1 % (37.0-47.0); HEMOGLOBIN 8.2 g/dl (12.0-16.0); LYMPHOCYTES # 2.2 10^3/ul (0.8-2.9); LYMPHOCYTES % 48.1 % (15.0-51.0); MEAN CORPUSCULAR HEMOGLOBIN 20.6 pg (29.0-33.0); MEAN CORPUSCULAR HGB CONC 30.3 g/dl (32.0-37.0); MEAN CORPUSCULAR VOLUME 67.9 fl (82.0-101.0); MEAN PLATELET VOLUME 8.5 fl (7.4-10.4); MONOCYTE # 0.5 10^3/ul (0.3-0.9); NEUTROPHIL # 1.7 10^3/ul (1.6-7.5); PLATELET COUNT 241 10^3/UL (140-440); RED BLOOD COUNT 3.99 10^6/ul (4.20-5.40); RED CELL DISTRIBUTION WIDTH 21.7 % (11.5-14.5); UNCORRECTED WBC 4.6 10^3/ul (4.8-10.8); WHITE BLOOD COUNT 4.6 10^3/ul (4.8-10.8)
--- NOTE | 2016-06-18 05:48 | HP ---
Date/Time of Note Date/Time of Note DATE: 06/18/16 TIME: 05:32 Assessment/Plan VTE Prophylaxis VTE Prophylaxis Intervention: SCD's Lines/Catheters IV Catheter Type (from Nrs): Peripheral IV Assessment/Plan Assessment/Plan IMPRESSION: 1. Abdominal pain, with recent CT showing Probable cecal volvulus. 2. Microcytic anemia. s/p blood transfusion 2 days ago. We will evaluate for iron deficiency and GI bleed. 3. Obesity with BMI of ~ 31 PLAN: - We will keep n.p.o. She will be placed on IV fluid. We will provide pain medication and antiemetics as needed. - Pt had a surgical evaluation by Dr. Mojica 2 days ago during last hospitalization. He didn't think there was acute cecal volvulus. His recommendation was to obtain CT from 2006 and compare with latest one. Upper GI series, Small bowel follow-through was done and it was normal without evidence of obstruction. - Will place a GI consult - Will monitor her hemoglobin closely and transfuse as needed. We will check iron profile, ferritin, and will order FOBT. - Weight loss was advised Further workup and management per clinical course. HPI/ROS Admit Date/Time Admit Date/Time Jun 17, 2016 at 22:23 Hx of Present Illness The patient is a 40-year-old female with a history of anemia, chronic pain syndrome, and cholecystectomy who presented to the emergency department with abdominal pain. Pt was actually admitted here by myself 2 days ago after she presented with abd pain, nausea and NBNB vomiting. CT abdomen and pelvis at that time showed findings concerning for cecal volvulus. Also noted was she is status post cholecystectomy with common bile duct dilated to 1.2 cm, but no evidence of choledocholith. she was admitted and had a surgical evaluation by Dr. Mojica who didn't think there was acute cecal volvulus. His recommendation was to obtain CT from 2006 and compare with latest one. Upper GI series, Small bowel follow-through was done and it was normal without evidence of obstruction. She also received blood transfusion for hgb of 6.4. Pt however left AMA the next day Pt is now back here with similar complain. Hgb is now 8.7. PMH/Family/Social Past Medical History PAST MEDICAL HISTORY: As per HPI. PAST SURGICAL HISTORY: As per HPI. SOCIAL HISTORY: Denied a history of tobacco, alcohol, or illicit drug use. Social History Smoking Status: Never smoker Exam/Review of Systems Vital Signs Vitals Vital Signs Date Time Temp Pulse Resp B/P Pulse Ox O2 Delivery O2 Flow Rate FiO2 06/17/16 23:58 97.8 82 18 102/55 98 Room Air Intake and Output 06/17/16 06/17/16 06/18/16 15:00 23:00 07:00 Intake Total 550 ml Output Total 1000 ml Balance -450 ml Exam Exam GENERAL: The patient is in mild discomfort due to abdominal pain. She is answering questions appropriately, able to speak in full sentences. HEENT: No obvious head deformity. Pupils are reactive to light. CARDIOVASCULAR: Regular rate and rhythm. No extra sounds. LUNGS: Clear. ABDOMEN: Soft. There is some tenderness in the lower abdominal region in the suprapubic area with no guarding, no rigidity, no rebound tenderness. There are positive bowel sounds. EXTREMITIES: No edema. NEUROLOGIC: No focal deficits. Labs Result Diagram: 06/17/16222406/17/162224 Medications Medications Current Medications Morphine Sulfate (morphine) 3 mg Q4H PRN IV PAIN Last administered on 01:30; Admin Dose 3 MG; Start 06/18/16 at 01:30 Ondansetron HCl 4 mg 4 mg Q6H PRN IV NAUSEA AND/OR VOMITING; Start 06/18/16 at 01:30 Dextrose/Sodium Chloride (D5-1/2ns) 1,000 ml @ 100 mls/hr Q10H IV Last administered on 06/18/16 01:29; Admin Dose 100 MLS/HR; Start 06/18/16 at 01:30 Ketorolac Tromethamine (Toradol) 15 mg Q6H PRN IV PAIN Last administered on 03:40; Admin Dose 15 MG; Start 06/18/16 at 01:30; Stop 06/21/16 at 01:29 DARWIN HWANG MD Jun 18, 2016 05:44
[2016-06-18 05:55] LABS: ALBUMIN 3.1 g/dl (3.3-4.9); POTASSIUM 3.6 mmol/L (3.5-5.1)
[2016-06-18 05:57] LABS: CREATININE 0.58 mg/dl (0.44-1.00)
[2016-06-18 05:58] LABS: ALBUMIN/GLOBULIN RATIO 0.93; TOTAL PROTEIN 6.4 g/dl (6.1-8.1)
[2016-06-18] MEDS ORDERED: POTASSIUM CHLORIDE 30 MEQ in SOD CHLORIDE 0.9% 150 ML IVPB ONE (06:00)
[2016-06-18 06:01] LABS: CONDITION 1; LH ANALYZER COMMENTS 1
[2016-06-18 08:09] VITALS: BP 107/63; RESP 19
[2016-06-18 08:22] LABS: TOTAL IRON BINDING CAPACITY 350 ug/dl (241-421)
[2016-06-18 08:56] LABS: IRON < 10 ug/dl (35-150)
--- NOTE | 2016-06-18 12:56 | PN ---
Date/Time of Note Date/Time of Note DATE: 06/18/16 TIME: 12:51 Assessment/Plan VTE Prophylaxis VTE Prophylaxis Intervention: contraindicated, SCD's Lines/Catheters IV Catheter Type (from Nrsg): Peripheral IV Assessment/Plan Chief Complaint/Hosp Course Hospitalist service coverage: Subjective: Mod abd pain. No vomiting fever. Poor historian. Objective: Vital signs stable PE No pallor icterus adenopathy Reg S1S2, no m/r/g CTAB Bs positive, mild tender, nondistended, no r/r. Probable voluntary guarding Ext- no edema A/P 1. Abd pain, stable, consult GI. probable recurrent constipation 2. Anemia, vs GI loss. 3. Probable chr pain/pain seeking behavior. 4. Nonadherence Problems: Exam/Review of Systems Vital Signs Vitals Vital Signs Date Time Temp Pulse Resp B/P Pulse Ox O2 Delivery O2 Flow Rate FiO2 06/18/16 08:09 97.6 88 19 107/63 97 06/17/16 23:58 Room Air Intake and Output 06/17/16 06/17/16 06/18/16 15:00 23:00 07:00 Intake Total 550 ml Output Total 1000 ml Balance -450 ml Results Result Diagram: 06/18/168 06/18/16 0428 Results 24 hrs Laboratory Tests Test 06/17/16 22:25 06/18/16 04:28 06/18/16 07:14 Anion Gap 17 H 17 H Basophils # 0.0 0.0 Basophils % 0.3 0.5 Blood Morphology Comment Blood Urea Nitrogen 4 L 5 L Calcium Level 8.5 8.0 L Carbon Dioxide Level 25 26 Chloride Level 104 107 Creatinine 0.62 0.58 Eosinophils # 0.3 0.2 Eosinophils % 5.0 4.4 Glucose Level 83 71 Hematocrit 28.7 #L 27.1 L Hemoglobin 8.7 #L 8.2 L Lymphocytes # 2.1 2.2 Lymphocytes % 37.2 48.1 Mean Corpuscular Hemoglobin 20.5 L 20.6 L Mean Corpuscular Hemoglobin Concent 30.3 L 30.3 L Mean Corpuscular Volume 67.6 L 67.9 L Mean Platelet Volume 8.1 8.5 Monocytes # 0.6 0.5 Monocytes % 10.6 11.0 Neutrophils # 2.7 1.7 Neutrophils % 46.9 36.0 L Nucleated Red Blood Cells # 0.0 0.0 Nucleated Red Blood Cells % 0.0 0.0 Platelet Count 257 241 Potassium Level 3.1 L 3.6 Red Blood Count 4.24 # 3.99 L Red Cell Distribution Width 21.4 H 21.7 H Sodium Level 143 146 H White Blood Count 5.8 4.6 #L Alanine Aminotransferase (ALT/SGPT) 23 Albumin 3.1 L Albumin/Globulin Ratio 0.93 Alkaline Phosphatase 114 Aspartate Amino Transf (AST/SGOT) 28 Direct Bilirubin 0.00 Globulin 3.30 H Indirect Bilirubin 0.0 Total Bilirubin 0.0 L Total Protein 6.4 Ferritin 6.0 L Iron Level < 10 L Percent Iron Saturation Total Iron Binding Capacity 350 Medications Medications Current Medications Morphine Sulfate (morphine) 3 mg Q4H PRN IV PAIN Last administered on 09:48; Admin Dose 3 MG; Start 06/18/16 at 01:30 Ondansetron HCl 4 mg 4 mg Q6H PRN IV NAUSEA AND/OR VOMITING; Start 06/18/16 at 01:30 Dextrose/Sodium Chloride (D5-1/2ns) 1,000 ml @ 100 mls/hr Q10H IV Last administered on 06/18/16 01:29; Admin Dose 100 MLS/HR; Start 06/18/16 at 01:30 Ketorolac Tromethamine (Toradol) 15 mg Q6H PRN IV PAIN Last administered on 03:40; Admin Dose 15 MG; Start 06/18/16 at 01:30; Stop 06/21/16 at 01:29 JIN GEORGES MD Jun 18, 2016 12:56
[2016-06-18 16:29] LABS: ADD UMIC YES; URINE BILIRUBIN (Dip) NEGATIVE (NEGATIVE); URINE BLOOD (Dip) TRACE (NEGATIVE); URINE GLUCOSE (Dip) NEGATIVE (NEGATIVE); URINE KETONES (Dip) NEGATIVE (NEGATIVE); URINE LEUKOCYTE ESTERASE (Dip) 3+ (NEGATIVE); URINE NITRITE (Dip) NEGATIVE (NEGATIVE); URINE TOTAL PROTEIN (Dip) NEGATIVE (NEGATIVE); URINE UROBILINOGEN (Dip) 0.2 E.U./dL (0.1-1.0)
[2016-06-18 16:39] LABS: URINE COLOR YELLOW (YELLOW)
--- NOTE | 2016-06-18 16:42 | RADRPT ---
PROCEDURE: XR Abdomen. CLINICAL INDICATION: abd pain TECHNIQUE: AP abdomen x-ray. COMPARISON: Abdominal radiograph June 16 FINDINGS: There has been interval passage of the oral contrast through the small bowel into the colon and rect um. No dilated small bowel loops are present. The patient is post cholecystectomy. There is no pn eumoperitoneum. No abnormal abdominal or pelvic calcifications are present. IMPRESSION: Normal abdominal radiograph. .J Carlos Tinajero MD, MD Date Time Electronically viewed and signed by .J Carlos Tinajero MD, on 06/18/2016 16:42 .A/
[2016-06-18 16:46] LABS: BACTERIA,URINE MODERATE; SQUAMOUS EPITHELIAL CELL,UR MANY; URINE RBCS 0-2 /HPF (0)
--- NOTE | 2016-06-18 17:14 | CONS ---
Date/Time of Note Date/Time of Note DATE: 06/18/16 TIME: 16:43 Assessment/Plan Assessment/Plan Additional Assessment/Plan Abdominal pain, evaluate for PUD * Patient declines EGD * Advance diet * Repeat Stool OB. Neg stool OB 06-16-16 * PPI therapy * Abdominal CT 06-15-16: * 1. The cecum and very proximal ascending colon are moderately distended with air and positioned within the left upper quadrant of the abdomen, rather than right lower quadrant. There is narrowing over considerable length of the more proximal right colon which crosses the midline. This is of concern for a cecal volvulus, although there is no small bowel obstruction evident. A normal size vermiform appendix is seen extend off the cecum within the left upper quadrant an appendicolith is seen within the appendix. * 2. Moderate-sized hiatal hernia. * 3. A couple small punctate granulomata are seen within the liver. * 4. Status post cholecystectomy with the common bile duct dilated to 1.2 cm. No choledocholith is evident and the pancreas appears unremarkable. Clinical and laboratory correlation is indicated to exclude distal biliary obstruction. * 5. There is a 2 mm nonobstructing nephrolith within the mid pole of the right kidney. There is no evidence of urinary outflow obstruction or ureterolithiasis. * 6. A surgical clip is seen in the left adnexal region. * SBFT 06-16-16: * 1. Normal small bowel follow-through. No evidence of obstruction. * UGI series 06-16-16: * 1. Prior right upper quadrant abdomen surgery. * 2. Otherwise normal upper GI series. * Abdominal xray 06-18-16: * 1. Normal abdominal radiograph. Nausea * Start Reglan scheduled Further recommendations depend on clinical course Pt seen in collaboration with Dr. Courtney Consultation Date/Type/Reason Admit Date/Time Jun 17, 2016 at 22:23 Hx of Present Illness 40 YO that presented to the ED with reports of intense diffuse abdominal pain and nausea. States pain has been present since last . Denies vomiting , fever, chills, travel outside of [place], diarrhea, and melena stools. Per previous record, " The patient is a 40-year-old female with a history of anemia , chronic pain syndrome, and cholecystectomy who presented to the emergency department with abdominal pain. Pt was actually admitted here by myself 2 days ago after she presented with abd pain, nausea and NBNB vomiting. CT abdomen and pelvis at that time showed findings concerning for cecal volvulus. Also noted was she is status post cholecystectomy with common bile duct dilated to 1.2 cm, but no evidence of choledocholith. she was admitted and had a surgical evaluation by Dr. Mojica who didn't think there was acute cecal volvulus. His recommendation was to obtain CT from 2006 and compare with latest one. Upper GI series, Small bowel follow-through was done and it was normal without evidence of obstruction. She also received blood transfusion for hgb of 6.4. Pt however left AMA the next day. Pt is now back here with similar complain. Hgb is now 8.7." At bedside, offered patient EGD for further evaluation of abdominal pain. Advised patient of R/BE/A of procedure and she declines evaluation. Will advance diet. Past Surgical History Past Surgical Hx: cholecystectomy Social History Smoking Status: Never smoker Exam/Review of Systems Vital Signs Vitals Vital Signs Date Time Temp Pulse Resp B/P Pulse Ox O2 Delivery O2 Flow Rate FiO2 06/18/16 08:09 97.6 88 19 107/63 97 06/17/16 23:58 Room Air Intake and Output 06/17/16 06/17/16 06/18/16 15:00 23:00 07:00 Intake Total 550 ml Output Total 1000 ml Balance -450 ml Exam Constitutional: alert, obese, oriented Psych: anxiety Head: normocephalic Eyes: EOMI, nl conjunctiva, nl lids, nl sclera ENMT: nl external ears & nose, nl lips & teeth, nl nasal mucosa & septum Respiratory: normal air movement Cardiovascular: regular rate and rhythm Gastrointestinal: other (Reports diffuse tenderness), soft Neurological: IT COMPLIANCE ANALYST II-XII intact Results Result Diagram: 06/18/1642706/18/16427 Results 24 hrs Laboratory Tests Test 06/17/16 22:25 06/18/16 04:28 06/18/16 07:14 06/18/16 15:10 Anion Gap 17 H 17 H Basophils # 0.0 0.0 Basophils % 0.3 0.5 Blood Morphology Comment Blood Urea Nitrogen 4 L 5 L Calcium Level 8.5 8.0 L Carbon Dioxide Level 25 26 Chloride Level 104 107 Creatinine 0.62 0.58 Eosinophils # 0.3 0.2 Eosinophils % 5.0 4.4 Glucose Level 83 71 Hematocrit 28.7 #L 27.1 L Hemoglobin 8.7 #L 8.2 L Lymphocytes # 2.1 2.2 Lymphocytes % 37.2 48.1 Mean Corpuscular Hemoglobin 20.5 L 20.6 L Mean Corpuscular Hemoglobin Concent 30.3 L 30.3 L Mean Corpuscular Volume 67.6 L 67.9 L Mean Platelet Volume 8.1 8.5 Monocytes # 0.6 0.5 Monocytes % 10.6 11.0 Neutrophils # 2.7 1.7 Neutrophils % 46.9 36.0 L Nucleated Red Blood Cells # 0.0 0.0 Nucleated Red Blood Cells % 0.0 0.0 Platelet Count 257 241 Potassium Level 3.1 L 3.6 Red Blood Count 4.24 # 3.99 L Red Cell Distribution Width 21.4 H 21.7 H Sodium Level 143 146 H White Blood Count 5.8 4.6 #L Alanine Aminotransferase (ALT/SGPT) 23 Albumin 3.1 L Albumin/Globulin Ratio 0.93 Alkaline Phosphatase 114 Aspartate Amino Transf (AST/SGOT) 28 Direct Bilirubin 0.00 Globulin 3.30 H Indirect Bilirubin 0.0 Total Bilirubin 0.0 L Total Protein 6.4 Ferritin 6.0 L Iron Level < 10 L Percent Iron Saturation Total Iron Binding Capacity 350 Urine Bilirubin NEGATIVE Urine Clarity CLOUDY Urine Color YELLOW Urine Glucose NEGATIVE Urine Hemoglobin TRACE Urine Ketones NEGATIVE Urine Leukocyte Esterase 3+ H Urine Microscopic RBC Pending Urine Microscopic WBC Pending Urine Nitrite NEGATIVE Urine Test NEGATIVE Urine Specific [place] >=1.030 H Urine Total Protein NEGATIVE Urine Urobilinogen 0.2 E.U./dL Urine pH 6.0 Medications Medications Current Medications Morphine Sulfate (morphine) 3 mg Q4H PRN IV PAIN Last administered on 13:45; Admin Dose 3 MG; Start 06/18/16 at 01:30 Ondansetron HCl 4 mg 4 mg Q6H PRN IV NAUSEA AND/OR VOMITING; Start 06/18/16 at 01:30 Dextrose/Sodium Chloride (D5-1/2ns) 1,000 ml @ 100 mls/hr Q10H IV Last administered on 06/18/16 01:29; Admin Dose 100 MLS/HR; Start 06/18/16 at 01:30 Ketorolac Tromethamine (Toradol) 15 mg Q6H PRN IV PAIN Last administered on t 03:40; Admin Dose 15 MG; Start 06/18/16 at 01:30; Stop 06/21/16 at 01:29 ZAHEER REESE Jun 18, 2016 17:01
[2016-06-18] MEDS ORDERED: METOCLOPRAMIDE 10 MG TAB PO SCH (17:30)
[2016-06-18] MEDS ORDERED: PANTOPRAZOLE (EC) 40 MG TAB PO SCH (18:00)
[2016-06-18] MEDS ORDERED: IBUPROFEN 800 MG TAB PO PRN (21:00)
[2016-06-18] MEDS ORDERED: PSYLLIUM 28% PACKET PO SCH (21:00)
[2016-06-18 21:20] VITALS: BP 140/89; RESP 20
[2016-06-18] MEDS ORDERED: morphine 2 MG INJ IV PRN (21:30)
[2016-06-18] MEDS ORDERED: KETOROLAC 15 MG INJ IV SCH (22:00)
[2016-06-18] MEDS ORDERED: KETOROLAC 15 MG INJ IV PRN (22:00)
[2016-06-18] MEDS ORDERED: KETOROLAC 30 MG INJ IV SCH (22:00)
[2016-06-19] MEDS ORDERED: morphine 4 MG/ML VIAL IV PRN
== END 2016-06-18 22:00 | disposition left against medical advice (07) ==
LOC: E/R 21:37 → UNDOADMOB 22:22 → MS1 22:22
PROVIDERS: ADMIT Internal Medicine; ATTEND Internal Medicine
DX: R10.9 Unspecified abdominal pain (principal); D50.9 Iron deficiency anemia, unspecified; Z90.49 Acquired absence of other specified parts of digestive tract; E66.9 Obesity, unspecified; Z68.31 Body mass index [BMI] 31.0-31.9, adult
CPT/HCPCS: 36415; 74000; 80048; 80053; 81001; 82728; 83540; 84703; 85025; 96374; 96375; 99285; G0378; J1170; J1885; J2270; J2405; J7030; J7042; 81003

== ENCOUNTER 2016-06-26 23:42 | Emergency (ER) | payer SELFPAY ==
[~2016-06-26] VITALS: Ht 157.5 cm; Wt 71.8 kg
[~2016-06-26 23:42] MED LIST changes: -CEPH-443 PO; -FER325 PO; -HYDR-902 PO; -IBUP-1542 PO; +TRAM50TA2 PO; -ULT50 PO
[2016-06-26 23:44] VITALS: Ht 157.5 cm; Wt 71.8 kg
== END 2016-06-27 02:57 | disposition left against medical advice (07) ==
LOC: FTE 23:42
DX: Z53.21 Procedure and treatment not carried out due to patient leaving prior to being seen by health care provider (principal)

== ENCOUNTER 2016-06-28 23:39 | Emergency (ER) | payer SELFPAY ==
[~2016-06-28] VITALS: Ht 160 cm; Wt 70.0 kg
[2016-06-28 23:46] VITALS: Ht 160 cm; Wt 70.0 kg
[2016-06-29] MEDS ORDERED: HYDROCODONE/APAP (10/325) TAB PO ONE (02:30)
--- NOTE | 2016-06-29 02:47 | ERD ---
ER Documentation Chief Complaint Date/Time DATE: 06/29/16 TIME: 02:44 Chief Complaint Left knee pain x4days HPI 40-year-old female presents here in emergency department for [place] of left knee pain for 4 days. Patient describes the pain as throbbing pain, 6/10 scale, is worse upon movement. Patient states that she fell 2 weeks ago, started to have the pain, it got worse in the last 4 days. Patient states that she fell again 2 days ago. Patient did not take any medications to help with symptoms. Patient denies any numbness or tingling. Patient denies any deformity. ROS All systems reviewed and are negative except as per history of present illness. Medications Home Meds Active Scripts Docusate Sodium* (Colace*) 100 Mg Capsule, 200 MG PO DAILY, #30 CAP Prov:SRINATH ROSALES PA-C 06/15/16 Tramadol HCl (Tramadol HCl) 50 Mg Tablet, 50 MG PO Q6 Y for PAIN, #20 TAB Prov:PRIYANKA GILLETTE PA-C 05/20/16 Reported Medications Gabapentin* (Gabapentin*) 300 Mg Capsule, 600 MG PO TID, #180 CAP 06/16/16 Allergies Allergies: Coded Allergies: No Known Allergy (Unverified , 06/26/16) PMhx/Soc History of Surgery: Yes (Appendectomy, cholecystectomy) Anesthesia Reaction: No Hx Neurological Disorder: No Hx Respiratory Disorders: No Hx Cardiac Disorders: No Hx Psychiatric Problems: No Hx Miscellaneous Medical Probl: Yes (Chronic pain) Hx Alcohol Use: No Hx Substance Use: No Hx Tobacco Use: No Smoking Status: Never smoker FmHx Family History: No coronary disease, No diabetes, No other Physical Exam Vitals Vital Signs Date Time Temp Pulse Resp B/P Pulse Ox O2 Delivery O2 Flow Rate FiO2 06/28/16 23:46 98.1 110 20 123/68 96 Physical Exam GENERAL: The patient is well developed and appropriate for usual state of health, in no apparent distress. CHEST: Clear to auscultation bilaterally. There are no rales, wheezes or rhonchi. HEART: Regular rate and rhythm. No murmurs, clicks, rubs or gallops. No S3 or S4. ABDOMEN: Soft, nontender and nondistended. Good bowel sounds. No rebound or guarding. No gross peritonitis. No gross organomegaly or masses. No Kessler sign or McBurney point tenderness. BACK: No midline or flank tenderness. EXTREMITIES: Tenderness on palpation on lateral medial and patellar aspect of the left knee with mild swelling noted, no deformity noted, negative posterior and anterior drawer test. Equal pulses bilaterally. Full range of motion of other joints of the body. Grossly neurovascularly intact. NEURO: Alert and oriented. Cranial nerves 2-12 intact. Motor strength in all 4 extremities with 5/5 strength. Sensation grossly intact. Normal speech and gait. SKIN: There is no apparent rash or petechia. The skin is warm and dry. HEMATOLOGIC AND LYMPHATIC: There is no evidence of excessive bruising or lymphedema. No gross cervical, axillary, or inguinal lymphadenopathy. Results 24 hrs Current Medications Medications (Trade) Dose Ordered Sig/Ana Route PRN Reason Start Time Stop Time Status Last Admin Dose Admin Acetaminophen/ Hydrocodone Bitart ([place] (10/325)) 1 tab ONCE ONCE PO 06/29/16 02:30 06/29/16 02:31 DC 06/29/16 02:39 Patient was given medication for pain here in emergency department, after treatment, patient verbalized feeling much better. Patient's pain is improved. PROCEDURE: Left knee x-ray CLINICAL INDICATION: Left knee pain. TECHNIQUE: AP, lateral and oblique views of the left knee were obtained. COMPARISON: None FINDINGS: There is normal mineralization. No acute fracture or dislocation is seen. There are no significant degenerative changes. There is no joint effusion. There is no significant soft tissue swelling. IMPRESSION: Normal x-ray of the left knee. RPTAT: [facility] Physician Jose Date Time Electronically viewed and signed by Physician Jose on 06/29/2016 02:57 RS/ After receiving patients xray report, a knee immobilizer was applied on the patients left knee__. After application of the splint, patient has intact sensation and circulation on distal area of the affected joint. Patient does not complain of numbness or tingling after application of the splint. Patient tolerated procedure well. Crutches is given to use afterwards. Procedures/MDM Medical Decision Making: Patient's pain is most likely consistent with a contusion or a sprain. There is no suspicion for neurovascular compromise. Patient has intact sensation and circulation of the affected extremity. There is low suspicion for septic arthritis. Patient does not have any fever. Radiology exams of the affected area does not show any fracture or dislocation. Disposition: Home. Patient is given prescription for ibuprofen for pain. Patient was advised to elevate the affected area and apply ice on affected area. Patient was advised that if symptoms are worse, numbness, tingling, high fever, unable to move joint, worsening symptoms, to return to emergency department immediately. Otherwise, patient is advised to follow up with the primary care doctor in 5-7 days for reevaluation of symptoms. Departure Diagnosis: Primary Impression: Left knee pain Chronicity: chronic Qualified Code: M25.562 - Chronic pain of left knee Condition: Stable Patient Instructions: Knee Pain, Uncertain Cause Additional Instructions: Patient is given prescription for ibuprofen for pain. Patient was advised to elevate the affected area and apply ice on affected area. Patient was advised that if symptoms are worse, numbness, tingling, high fever, unable to move joint , worsening symptoms, to return to emergency department immediately. Otherwise, patient is advised to follow up with the primary care doctor in 5-7 days for reevaluation of symptoms. KHAI WALLACE NP Jun 29, 2016 02:47
--- NOTE | 2016-06-29 02:58 | RADRPT ---
PROCEDURE: Left knee x-ray CLINICAL INDICATION: Left knee pain. TECHNIQUE: AP, lateral and oblique views of the left knee were obtained. COMPARISON: None FINDINGS: There is normal mineralization. No acute fracture or dislocation is seen. There are no significant degenerative changes. There is no joint effusion. There is no significant soft tissue swelling. IMPRESSION: Normal x-ray of the left knee. RPTAT: [facility] Physician Jose Date Time Electronically viewed and signed by Reyna Porter Physician on 06/29/2016 02:57 RS/
[2016-06-29] MEDS ORDERED: IBUP-1542 PO (03:01)
[2016-06-29 04:10] VITALS: BP 129/59; PULSE 93; RESP 17
== END 2016-06-29 04:15 | disposition home or self-care (01) ==
LOC: FTE 23:39
DX: S89.92XA Unspecified injury of left lower leg, initial encounter (principal); W18.39XA Other fall on same level, initial encounter; Y92.9 Unspecified place or not applicable
CPT/HCPCS: 73562

== ENCOUNTER 2016-07-10 23:21 | Emergency (ER) | payer SELFPAY ==
[~2016-07-10] VITALS: Ht 157.5 cm; Wt 74.0 kg
[~2016-07-10 23:21] MED LIST changes: +IBUP-1542 PO
[2016-07-10 23:26] VITALS: Ht 157.5 cm; Wt 74.0 kg
[2016-07-11] MEDS ORDERED: traMADol 50 MG TAB PO ONE (01:00)
[2016-07-11] MEDS ORDERED: IBUPROFEN 600 MG TAB PO ONE (01:00)
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
--- NOTE | 2016-07-11 02:32 | RADRPT ---
PROCEDURE: XR Knee. CLINICAL INDICATION: Trauma TECHNIQUE: AP, lateral and oblique view of the left knee were obtained. COMPARISON: 06/29/16 FINDINGS: There is normal mineralization.There is no acute fracture or dislocation.No destructive lesion is id entified. There is no joint effusion. IMPRESSION: No fracture or dislocation. RPTAT: HIKT .Kamar Goodson MD, MD Date Time Electronically viewed and signed by .Kamar Goodson MD, MD on 07/11/2016 02:31 .T/
[2016-07-11] MEDS ORDERED: TRAM50TA2 PO (02:39)
[2016-07-11] MEDS ORDERED: IBUP-1542 PO (02:39)
[2016-07-11 03:59] VITALS: BP 120/82; PULSE 77; RESP 18; TEMP 98.3
[2016-07-12] MEDS ORDERED: TRAM50TA2 PO (17:50)
[2016-07-12] MEDS ORDERED: MUPI22OI2 TOP (17:51)
== END 2016-07-11 04:00 | disposition home or self-care (01) ==
LOC: FTE 23:21
DX: S80.212A Abrasion, left knee, initial encounter (principal); Y08.89XA Assault by other specified means, initial encounter
CPT/HCPCS: 73562

== ENCOUNTER 2016-07-12 17:22 | Emergency (ER) | payer OTHER ==
[~2016-07-12] VITALS: Ht 152.4 cm; Wt 78.0 kg
[2016-07-12 17:30] VITALS: Ht 152.4 cm; Wt 78.0 kg
[2016-07-12] MEDS ORDERED: TRAM50TA2 PO (17:50)
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
[2016-07-12] MEDS ORDERED: MUPI22OI2 TOP (17:51)
== END 2016-07-12 17:53 | disposition home or self-care (01) ==
LOC: FTE 17:22 → E/R 17:53
DX: Z48.01 Encounter for change or removal of surgical wound dressing (principal); S80.212D Abrasion, left knee, subsequent encounter; Y08.89XD Assault by other specified means, subsequent encounter
CPT/HCPCS: 99284

== ENCOUNTER 2016-07-23 01:24 | Emergency (ER) | payer OTHER ==
[~2016-07-23] VITALS: Ht 157.5 cm; Wt 70.8 kg
[~2016-07-23 01:24] MED LIST changes: +MUPI22OI2 TOP
[2016-07-23 01:29] VITALS: Ht 157.5 cm; Wt 70.8 kg
[2016-07-23] MEDS ORDERED: BUPIVACAINE 0.25% (MPF) 10 ML 10 ML VIAL INJ ONE (05:00)
[2016-07-23] MEDS ORDERED: METH500T PO (05:10)
[2016-07-23] MEDS ORDERED: TRAM50TA2 PO (05:10)
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
[2016-07-23 05:20] VITALS: BP 122/79; PULSE 81; RESP 16
== END 2016-07-23 05:21 | disposition home or self-care (01) ==
LOC: FTE 01:24
DX: M62.838 Other muscle spasm (principal)
CPT/HCPCS: 99284

== ENCOUNTER 2016-08-02 18:09 | Emergency (ER) | payer OTHER ==
[~2016-08-02] VITALS: Ht 157.5 cm; Wt 71.0 kg
[~2016-08-02 18:09] MED LIST changes: +METH500T PO
[2016-08-02 18:53] VITALS: Ht 157.5 cm; Wt 71.0 kg
[2016-08-02] MEDS ORDERED: HYDROCODONE/APAP (5/325) TAB PO ONE (21:30)
[2016-08-02] MEDS ORDERED: TRAM100T27 PO (21:49)
[2016-08-02] MEDS ORDERED: ORPH100T PO (21:50)
--- NOTE | 2016-08-02 22:13 | ERD ---
ER Documentation Chief Complaint Date/Time DATE: 08/02/16 TIME: 22:05 Chief Complaint Bilateral shoulder pain HPI This is a 40-year-old female presents to ER with bilateral neck pain and shoulder pain. Patient has been here before in the past for this and was given a trigger injection. Patient states that this helps. Medication was given to her also help. Patient has not had any recent trauma. She denies any fevers or chills. She denies any numbness or tingling of her arms. ROS 12 point review of systems was done, all negative except per HPI. Medications Home Meds Active Scripts Orphenadrine Citrate (Norflex) 100 Mg Tablet.sa, 100 MG PO BID for 3 Days, TAB.SA Prov:JORGE L MARINELLI 08/02/16 Tramadol Hcl* (Tramadol* ER) 100 Mg Tab.er.24h, 100 MG PO DAILY, #30 TAB Prov:JORGE L MARINELLI 08/02/16 Methocarbamol* (Robaxin*) 500 Mg Tab, 500 MG PO Q8 Y for MUSCLE SPASMS, #15 TAB Prov:ELIO STERLING NP 07/23/16 Tramadol HCl (Tramadol HCl) 50 Mg Tablet, 50 MG PO Q6 Y for PAIN, #20 TAB Prov:ELIO STERLING NP 07/23/16 Mupirocin* (Bactroban*) 2% -22 Gram Oint...g., 1 APPLIC TOP TID for 7 Days, #1 TUB SITE OF APPLICATION: Prov:MANDO FELDMAN PA-C 07/12/16 Tramadol HCl (Tramadol HCl) 50 Mg Tablet, 50 MG PO Q6 Y for PAIN, #12 TAB Prov:MANDO FELDMAN PA-C 07/12/16 Tramadol HCl (Tramadol HCl) 50 Mg Tablet, 50 MG PO Q6 Y for SEVERE PAIN LEVEL 7- 10, #10 TAB Prov:KHAI WALLACE NP 07/11/16 Ibuprofen* (Motrin*) 600 Mg Tab, 600 MG PO Q6H Y for PAIN AND OR ELEVATED TEMP, #30 TAB Prov:KHAI WALLACE NP 07/11/16 Ibuprofen* (Motrin*) 600 Mg Tab, 600 MG PO Q6H Y for PAIN AND OR ELEVATED TEMP, #30 TAB Prov:KHAI WALLACEMariano DROP HAMMER SETTER UP 06/29/16 Docusate Sodium* (Colace*) 100 Mg Capsule, 200 MG PO DAILY, #30 CAP Prov:BOBBYSRINATH GarMariano RODRIGUEZ 06/15/16 Tramadol HCl (Tramadol HCl) 50 Mg Tablet, 50 MG PO Q6 Y for PAIN, #20 TAB Prov:PRIYANKA GILLETTE PA-C 05/20/16 Reported Medications Gabapentin* (Gabapentin*) 300 Mg Capsule, 600 MG PO TID, #180 CAP 06/16/16 Allergies Allergies: Coded Allergies: No Known Allergy (Unverified , 06/26/16) PMhx/Soc History of Surgery: Yes (appendectomy ) Anesthesia Reaction: No Hx Neurological Disorder: No Hx Respiratory Disorders: No Hx Cardiac Disorders: No Hx Psychiatric Problems: No Hx Miscellaneous Medical Probl: Yes (Chronic pain) Hx Alcohol Use: No Hx Substance Use: No Hx Tobacco Use: No Smoking Status: Never smoker Physical Exam Vitals Vital Signs Date Time Temp Pulse Resp B/P Pulse Ox O2 Delivery O2 Flow Rate FiO2 08/02/16 18:53 99.2 98 20 123/68 98 Physical Exam GENERAL: The patient is well developed and appropriate for usual state of health , in no apparent distress. HEENT: Atraumatic. Conjunctivae are pink. Pupils equal, round, and reactive to light. Extraocular muscles are grossly intact. Bilateral tympanic membranes are clear with no evidence of erythema, effusion or dulling of the light reflex. The oropharynx is clear with no erythema or exudates. NECK: C-spine is soft and supple. There is no cervical lymphadenopathy. tense trapezius muscles CHEST: Clear to auscultation bilaterally. There are no rales, wheezes or rhonchi. HEART: Regular rate and rhythm. No murmurs, clicks, rubs or gallops. ABDOMEN: Soft, nontender and nondistended. Good bowel sounds. No rebound or guarding. No gross peritonitis. No gross organomegaly or masses. No Kessler sign or McBurney point tenderness. BACK: No midline or flank tenderness. NEURO: Alert and oriented. Results 24 hrs Current Medications Medications (Trade) Dose Ordered Sig/Ana Route PRN Reason Start Time Stop Time Status Last Admin Dose Admin Acetaminophen/ Hydrocodone Bitart (Vida (5/325)) 1 tab ONCE ONCE PO 08/02/16 21:30 08/02/16 21:31 DC 08/02/16 21:39 Procedures/MDM This is a 40-year-old female presents to the ER with acute on chronic bilateral neck and shoulder pain. Patient was given Vida here in the ER she will be sent home with tramadol and Norflex. Patient does not have any trauma. She is afebrile and well-appearing. I doubt meningitis fractures, dislocation, sepsis. Patient is neurovascularly intact and has for range of motion of her upper extremities. She was stable for outpatient therapy. She is to follow-up with her primary care doctor within 1-2 days or return to ER sooner if symptoms worsen. Medical decision making sure with the patient's general status and agrees with plan. Departure Diagnosis: Primary Impression: Shoulder pain, bilateral Condition: Stable Patient Instructions: Shoulder Pain (Uncertain Cause) Additional Instructions: Call your primary care doctor TOMORROW for an appointment during the next 1-2 days.See the doctor sooner or return here if your condition worsens before your appointment time. JORGE L MARINELLI Aug 02, 2016 22:12
== END 2016-08-02 22:06 | disposition home or self-care (01) ==
LOC: FTE 18:09
DX: M25.511 Pain in right shoulder (principal); M25.512 Pain in left shoulder
CPT/HCPCS: 99284

== ENCOUNTER 2016-08-06 03:56 | Emergency (ER) | payer SELFPAY ==
[~2016-08-06] VITALS: Ht 157.5 cm; Wt 70.5 kg
[~2016-08-06 03:56] MED LIST changes: +ORPH100T PO; +TRAM100T27 PO
[2016-08-06 04:04] VITALS: Ht 157.5 cm; Wt 70.5 kg
--- NOTE | 2016-08-06 04:26 | ERD ---
ER Documentation Chief Complaint Date/Time DATE: 08/06/16 TIME: 04:25 Chief Complaint headache/bilateral shoulder pain HPI 40-year-old female presents to emergency department complains of headache and neck pain bilateral shoulder pain after falling 3 days ago. Patient was seen here 3 days ago, verbalized loosing her prescriptions. Patient describes the pain as sharp pain, 4/10 scale, worse upon movement. Patient denies any numbness or tingling. Patient denies any loss of consciousness, patient has been here several times for the same problem, was told to come here in emergency department for possible radiology examination. ROS All systems reviewed and are negative except as per history of present illness. Medications Home Meds Active Scripts Orphenadrine Citrate (Norflex) 100 Mg Tablet.sa, 100 MG PO BID for 3 Days, TAB.SA Prov:JORGE L MARINELLI 08/02/16 Tramadol Hcl* (Tramadol* ER) 100 Mg Tab.er.24h, 100 MG PO DAILY, #30 TAB Prov:JORGE L MARINELLI 08/02/16 Methocarbamol* (Robaxin*) 500 Mg Tab, 500 MG PO Q8 Y for MUSCLE SPASMS, #15 TAB Prov:ELIO STERLING NP 07/23/16 Tramadol HCl (Tramadol HCl) 50 Mg Tablet, 50 MG PO Q6 Y for PAIN, #20 TAB Prov:ELIO STERLING NP 07/23/16 Mupirocin* (Bactroban*) 2% -22 Gram Oint...g., 1 APPLIC TOP TID for 7 Days, #1 TUB SITE OF APPLICATION: Prov:MANDO FELDMAN PA-C 07/12/16 Tramadol HCl (Tramadol HCl) 50 Mg Tablet, 50 MG PO Q6 Y for PAIN, #12 TAB Prov:MANDO FELDMAN PA-C 07/12/16 Tramadol HCl (Tramadol HCl) 50 Mg Tablet, 50 MG PO Q6 Y for SEVERE PAIN LEVEL 7- 10, #10 TAB Prov:KHAI WALLACE NP 07/11/16 Ibuprofen* (Motrin*) 600 Mg Tab, 600 MG PO Q6H Y for PAIN AND OR ELEVATED TEMP, #30 TAB Prov:KHAI WALLACE NP 07/11/16 Ibuprofen* (Motrin*) 600 Mg Tab, 600 MG PO Q6H Y for PAIN AND OR ELEVATED TEMP, #30 TAB Prov:KHAI WALLACE PSYCHOTHERAPIST 06/29/16 Docusate Sodium* (Colace*) 100 Mg Capsule, 200 MG PO DAILY, #30 CAP Prov:BOBBYSRINATH GarMariano RODRIGUEZ 06/15/16 Tramadol HCl (Tramadol HCl) 50 Mg Tablet, 50 MG PO Q6 Y for PAIN, #20 TAB Prov:PRIYANKA GILLETTE PA-C 05/20/16 Reported Medications Gabapentin* (Gabapentin*) 300 Mg Capsule, 600 MG PO TID, #180 CAP 06/16/16 Allergies Allergies: Coded Allergies: No Known Allergy (Unverified , 08/06/16) PMhx/Soc History of Surgery: Yes (appendectomy ) Anesthesia Reaction: No Hx Neurological Disorder: No Hx Respiratory Disorders: No Hx Cardiac Disorders: No Hx Psychiatric Problems: No Hx Miscellaneous Medical Probl: Yes (Chronic pain) Hx Alcohol Use: No Hx Substance Use: No Hx Tobacco Use: No Smoking Status: Never smoker FmHx Family History: No coronary disease, No diabetes, No other Physical Exam Vitals Vital Signs Date Time Temp Pulse Resp B/P Pulse Ox O2 Delivery O2 Flow Rate FiO2 08/06/16 04:04 98.9 94 20 152/69 100 Physical Exam GENERAL: The patient is well developed and appropriate for usual state of health, in no apparent distress. CHEST: Clear to auscultation bilaterally. There are no rales, wheezes or rhonchi. HEART: Regular rate and rhythm. No murmurs, clicks, rubs or gallops. No S3 or S4. ABDOMEN: Soft, nontender and nondistended. Good bowel sounds. No rebound or guarding. No gross peritonitis. No gross organomegaly or masses. No Kessler sign or McBurney point tenderness. BACK: No midline or flank tenderness. EXTREMITIES: Equal pulses bilaterally. There is no peripheral clubbing, cyanosis or edema. No focal swelling or erythema. Full range of motion. Grossly neurovascularly intact. NEURO: Alert and oriented. Cranial nerves 2-12 intact. Motor strength in all 4 extremities with 5/5 strength. Sensation grossly intact. Normal speech and gait. Negative Romberg sign. Negative pronator drift. SKIN: There is no apparent rash or petechia. The skin is warm and dry. HEMATOLOGIC AND LYMPHATIC: There is no evidence of excessive bruising or lymphedema. No gross cervical, axillary, or inguinal lymphadenopathy. Results 24 hrs Current Medications Medications (Trade) Dose Ordered Sig/Ana Route PRN Reason Start Time Stop Time Status Last Admin Dose Admin Ketorolac Tromethamine (Toradol) 60 mg ONCE STAT IM 08/06/16 05:19 08/06/16 05:20 DC 08/06/16 05:24 Patient was given medication for pain here in emergency department, after treatment, patient verbalized feeling much better. Patient's pain is improved. PROCEDURE: CT Cervical Spine. CLINICAL INDICATION: Trauma TECHNIQUE: Helical CT scanning which forms the basis for coronal and sagittal reformatted images. All CT scans at this facility use dose modulation, iterative reconstruction, and/or weight-based dosing when appropriate to reduce radiation dose to as low as reasonably achievable. The CTDIvol is 22.19 mGy and the DLP is 468.64 mGycm. One or more of the following dose reduction techniques were used: automated exposure control, adjustment of the mA and/or kV according to patient size, or use of iterative reconstruction technique. COMPARISON: None. FINDINGS: There is slight reversal of cervical lordosis which may be secondary to spasm or positioning. No prevertebral soft tissue swelling is seen. No fracture or significant listhesis is seen. IMPRESSION: No definite fracture or significant listhesis. Clinical clearance of the cervical spine is still advised. RPTAT: [facility] Physician Vaughn Date Time Electronically viewed and signed by Monet Kwong Physician on 08/06/2016 05 :19 LE/ CC: KHAI WALLACE NP PROCEDURE: CT Brain without contrast. CLINICAL INDICATION: Headache. Head trauma. TECHNIQUE: Axial images from the skull base through the vertex without IV contrast. Multiplanar reformatted images were made. Images were reviewed on a PACS workstation. The CTDIvol is 42.02 mGy and the DLP is 630.2 mGycm. One or more of the following dose reduction techniques were used: automated exposure control, adjustment of the mA and/or kV according to patient size, or use of iterative reconstruction technique. COMPARISON: None. FINDINGS: The ventricles and cisterns are normal for age. There is no evidence for territorial infarction or intracranial hemorrhage. No mass or midline shift is seen. No extra-axial fluid collection is seen. The visualized paranasal sinuses and mastoids are clear. The study is slightly limited by motion artifact and artifact in the patient's left hearing. IMPRESSION: No definite acute intracranial abnormality.. Slightly limited study. RPTAT: [facility] Monet Kwong Physician Date Time Electronically viewed and signed by Monet Kwong Physician on 08/06/2016 05 :21 LE/ CC: KHAI WALLACE PSYCHOTHERAPIST Procedures/MDM Medical Decision Making: Patient's pain is most likely consistent with a contusion or a sprain. There is no suspicion for neurovascular compromise. Patient has intact sensation and circulation of the affected extremity. There is low suspicion for septic arthritis. Patient does not have any fever. Radiology exams of the affected area does not show any fracture or dislocation. CT scan of the brain does not show any neurologic emergencies at this time. Patient did not lose consciousness after the injury. Patient has been evaluated several times for different pains in different parts of the body, has been seen multiple times in the emergency department for the last few months, this was reviewed, patient seems to be having a history of tramadol drug-seeking problem. I communicated this with the patient, will not be prescribed tramadol, would give other pain medication, was given ibuprofen and Flexeril regarding her pain today. Patient is advised to follow-up with the chronic pain specialist. Disposition: Home. Patient is given prescription for ibuprofen for pain, Flexeril. Patient was advised to elevate the affected area and apply ice on affected area. Patient was advised that if symptoms are worse, numbness, tingling, high fever, unable to move joint, worsening symptoms, to return to emergency department immediately. Otherwise, patient is advised to follow up with the primary care doctor in 5-7 days for reevaluation of symptoms. Departure Diagnosis: Primary Impression: Head contusion Encounter type: initial encounter Contusion of head detail: unspecified part of head Qualified Code: S00.93XA - Contusion of head, unspecified part of head, initial encounter Additional Impressions: Neck strain Encounter type: initial encounter Qualified Code: S16.1XXA - Neck strain, initial encounter Drug-seeking behavior Condition: Stable Patient Instructions: Chronic Pain, Neck Sprain/Strain, Scalp Contusion, No Wake Up Additional Instructions: Patient is given prescription for ibuprofen for pain, Flexeril. Patient was advised to elevate the affected area and apply ice on affected area. Patient was advised that if symptoms are worse, numbness, tingling, high fever, unable to move joint, worsening symptoms, to return to emergency department immediately. Otherwise, patient is advised to follow up with the primary care doctor in 5-7 days for reevaluation of symptoms. KHAI WALLACE NP Aug 06, 2016 04:26
[2016-08-06] MEDS ORDERED: KETOROLAC 60 MG INJ IM STA (05:19)
--- NOTE | 2016-08-06 05:19 | RADRPT ---
PROCEDURE: CT Cervical Spine. CLINICAL INDICATION: Trauma TECHNIQUE: Helical CT scanning which forms the basis for coronal and sagittal reformatted images. All CT scans at this facility use dose modulation, iterative reconstruction, and/or weight-based do sing when appropriate to reduce radiation dose to as low as reasonably achievable. The CTDIvol is 2 2.19 mGy and the DLP is 468.64 mGycm. One or more of the following dose reduction techniques were us ed: automated exposure control, adjustment of the mA and/or kV according to patient size, or use of iterative reconstruction technique. COMPARISON: None. FINDINGS: There is slight reversal of cervical lordosis which may be secondary to spasm or positioning. No pr evertebral soft tissue swelling is seen. No fracture or significant listhesis is seen. IMPRESSION: No definite fracture or significant listhesis. Clinical clearance of the cervical spine is still ad vised. RPTAT: [facility] Physician Vaughn Date Time Electronically viewed and signed by Physician Vaughn on 08/06/2016 05:19 SHANNA/
--- NOTE | 2016-08-06 05:22 | RADRPT ---
PROCEDURE: CT Brain without contrast. CLINICAL INDICATION: Headache. Head trauma. TECHNIQUE: Axial images from the skull base through the vertex without IV contrast. Multiplanar r eformatted images were made. Images were reviewed on a PACS workstation. The CTDIvol is 42.02 mGy and the DLP is 630.2 mGycm. One or more of the following dose reduction techniques were used: autom ated exposure control, adjustment of the mA and/or kV according to patient size, or use of iterative reconstruction technique. COMPARISON: None. FINDINGS: The ventricles and cisterns are normal for age. There is no evidence for territorial infarction or intracranial hemorrhage. No mass or midline shift is seen. No extra-axial fluid collection is seen . The visualized paranasal sinuses and mastoids are clear. The study is slightly limited by motion artifact and artifact in the patient's left hearing. IMPRESSION: No definite acute intracranial abnormality.. Slightly limited study. RPTAT: [facility] Physician Vaughn Date Time Electronically viewed and signed by Monet Kwong Physician on 08/06/2016 05:21 LE/
[2016-08-06] MEDS ORDERED: CYCL-319 PO (05:30)
[2016-08-06] MEDS ORDERED: IBUP-1542 PO (05:30)
== END 2016-08-06 05:40 | disposition home or self-care (01) ==
LOC: FTE 03:56
DX: S00.93XA Contusion of unspecified part of head, initial encounter (principal); S16.1XXA Strain of muscle, fascia and tendon at neck level, initial encounter; R51 Headache; W18.39XA Other fall on same level, initial encounter; Y92.9 Unspecified place or not applicable; Z72.89 Other problems related to lifestyle
CPT/HCPCS: 70450; 72125; J1885; 96372

== ENCOUNTER 2016-08-18 04:13 | Emergency (ER) | payer OTHER ==
[~2016-08-18] VITALS: Ht 152.4 cm; Wt 70.5 kg
[~2016-08-18 04:13] MED LIST changes: +CYCL-319 PO
[2016-08-18 04:20] VITALS: Ht 152.4 cm; Wt 70.5 kg
--- NOTE | 2016-08-18 04:33 | ERA ---
ER Documentation Chief Complaint Date/Time DATE: 08/18/16 TIME: 04:33 Chief Complaint AP since 1800. HPI The patient is a 40-year-old female, presenting to the ER because of abdominal pain that began about 6 PM last night. She took Motrin without response. She is a frequent patient in the ER. She has had about 57 local ER visits within the last 12 months. She has used multiple different names during previous ER visit. She denies fever, chills, neck pain, chest pain, dyspnea. The abdominal pain is vague and diffuse, denies dysuria, polyuria, vomiting, nausea. She had similar previous abdominal pain. She does not smoke or drink Past medical history: Chronic pain syndrome, anemia, asthma Past surgical history: Appendectomy ROS All systems reviewed and are negative except as per history of present illness. Medications Home Meds Active Scripts Tramadol HCl (Tramadol HCl) 50 Mg Tablet, 50 MG PO Q6 Y for PAIN, #10 TAB Prov:KALANI RODRIGUEZ MD 08/18/16 Cyclobenzaprine Hcl* (Cyclobenzaprine Hcl*) 10 Mg Tablet, 10 MG PO TID, #15 TAB Prov:KHAI WALLACE NP 08/06/16 Ibuprofen* (Motrin*) 600 Mg Tab, 600 MG PO Q6H Y for PAIN AND OR ELEVATED TEMP, #30 TAB Prov:KHAI WALLACE NP 08/06/16 Orphenadrine Citrate (Norflex) 100 Mg Tablet.sa, 100 MG PO BID for 3 Days, TAB.SA Prov:JORGE L MARINELLI 08/02/16 Tramadol Hcl* (Tramadol* ER) 100 Mg Tab.er.24h, 100 MG PO DAILY, #30 TAB Prov:JORGE L MARINELLI 08/02/16 Methocarbamol* (Robaxin*) 500 Mg Tab, 500 MG PO Q8 Y for MUSCLE SPASMS, #15 TAB Prov:ELIO STERLING NP 07/23/16 Tramadol HCl (Tramadol HCl) 50 Mg Tablet, 50 MG PO Q6 Y for PAIN, #20 TAB Prov:ELIO STERLING NP 07/23/16 Mupirocin* (Bactroban*) 2% -22 Gram Oint...g., 1 APPLIC TOP TID for 7 Days, #1 TUB SITE OF APPLICATION: Prov:MANDO FELDMAN PA-C 07/12/16 Tramadol HCl (Tramadol HCl) 50 Mg Tablet, 50 MG PO Q6 Y for PAIN, #12 TAB Prov:MANDO FELDMAN PA-C 07/12/16 Tramadol HCl (Tramadol HCl) 50 Mg Tablet, 50 MG PO Q6 Y for SEVERE PAIN LEVEL 7- 10, #10 TAB Prov:KHAI WALLACE. INDUSTRIAL WELDER 07/11/16 Ibuprofen* (Motrin*) 600 Mg Tab, 600 MG PO Q6H Y for PAIN AND OR ELEVATED TEMP, #30 TAB Prov:LILLIAMISIAKHAI. INDUSTRIAL WELDER 07/11/16 Ibuprofen* (Motrin*) 600 Mg Tab, 600 MG PO Q6H Y for PAIN AND OR ELEVATED TEMP, #30 TAB Prov:KHAI WALLACE. INDUSTRIAL WELDER 06/29/16 Docusate Sodium* (Colace*) 100 Mg Capsule, 200 MG PO DAILY, #30 CAP Prov:SRINATH ROSALES PA-C 06/15/16 Tramadol HCl (Tramadol HCl) 50 Mg Tablet, 50 MG PO Q6 Y for PAIN, #20 TAB Prov:PRIYANKA GILLETTE PA-C 05/20/16 Reported Medications Gabapentin* (Gabapentin*) 300 Mg Capsule, 600 MG PO TID, #180 CAP 06/16/16 Allergies Allergies: Coded Allergies: No Known Allergy (Unverified , 08/06/16) PMhx/Soc History of Surgery: Yes (appendectomy ) Anesthesia Reaction: No Hx Neurological Disorder: No Hx Respiratory Disorders: No Hx Cardiac Disorders: No Hx Psychiatric Problems: No Hx Miscellaneous Medical Probl: Yes (Chronic pain) Hx Alcohol Use: No Hx Substance Use: No Hx Tobacco Use: No Physical Exam Vitals Vital Signs Date Time Temp Pulse Resp B/P Pulse Ox O2 Delivery O2 Flow Rate FiO2 08/18/16 04:20 98.1 70 20 130/79 100 Physical Exam Const: No acute distress. Head: Atraumatic. Eyes: Normal Conjunctiva. ENT: Normal External Ears, Nose and Mouth. Neck: Full range of motion. No meningismus. Resp: Clear to auscultation bilaterally. Cardio: Regular rate and rhythm, no murmurs. Abd: Soft, non distended, normal bowel sounds, there is no abdominal tenderness on examination while I distracted her Skin: No petechiae or rashes. Back: No midline or flank tenderness. Ext: No cyanosis, or edema. Neur: Awake and alert. No focal deficit Psych: Normal Mood and Affect. Results 24 hrs Current Medications Medications (Trade) Dose Ordered Sig/Ana Route PRN Reason Start Time Stop Time Status Last Admin Dose Admin Tramadol HCl (Ultram) 50 mg ONCE ONCE PO 08/18/16 05:00 08/18/16 05:01 08/18/16 04:46 Procedures/MDM MEDICAL MAKING DECISION: The patient is a 40-year-old female, with history of chronic pain syndrome, presenting with vague abdominal pain of unclear etiology. I do not suspect any acute abdomen. She does not have any abdominal tenderness on my examination. She was treated with Ultram p.o. for pain with good response. The differential diagnoses considered include but are not limited to drug-seeking behavior, chronic pain syndrome, anxiety attack, panic attack, cholelithiasis, cholecystitis, cystitis, pancreatitis, hepatitis, gastritis, peptic ulcer disease, gastric ulcer, diverticulitis, cholangitis, choledocholithiasis, partial small bowel obstruction. Departure Diagnosis: Primary Impression: Abdominal pain Additional Impression: Chronic pain syndrome Condition: Good Comments She was discharged with 10 tablets of Ultram I discussed the findings with the patient. I advised the patient to follow-up with the primary physician in about 1-2 days, sooner if needed and return if any concern. The patient's blood pressure was elevated (>120/80) but appears stable without evidence of hypertension emergency or urgency. The patient was counseled about the risks of hypertension and urged to pursue outpatient monitoring and therapy within a week with their primary care physician. KALANI RODRIGUEZ MD Aug 18, 2016 04:33
[2016-08-18] MEDS ORDERED: TRAM50TA2 PO (04:44)
[2016-08-18] MEDS ORDERED: traMADol 50 MG TAB PO ONE (05:00)
== END 2016-08-18 04:52 | disposition home or self-care (01) ==
LOC: E/R 04:13
DX: R10.9 Unspecified abdominal pain (principal); G89.4 Chronic pain syndrome; J45.909 Unspecified asthma, uncomplicated
CPT/HCPCS: 99283